=== PATIENT | male | born 1955 | race American Indian/Alaskan Native ===

== ENCOUNTER 2016-11-18 08:44 | Emergency (ER) | payer BC ==
[2016-11-18 09:43] VITALS: BP 142/89
[2016-11-18 10:15] LABS: Basophils % (Auto) 0.3 % (0.0-1.8); Eosinophils % (Auto) 0.6 % (0.0-4.3); Hematocrit 41.6 % (35.5-45.6); Hemoglobin 13.4 gm/dl (11.8-15.2); Mean Corpuscular HGB Conc 32 % (32-34); Mean Corpuscular Hemoglobin 32 pg (28-32); Mean Corpuscular Volume 97 fl (84-94); Platelet Count 199 K/mm3 (140-440); Red Blood Count 4.27 M/mm3 (3.65-5.03); Red Cell Distribution Width 15.1 % (13.2-15.2); White Blood Count 5.7 K/mm3 (4.5-11.0)
[2016-11-18 10:35] LABS: Anion Gap 15 mmol/L; BUN/Creatinine Ratio 11.42; Blood Urea Nitrogen 8 mg/dL (9-20); Calcium 9.6 mg/dL (8.4-10.2); Carbon Dioxide 24 mmol/L (22-30); Chloride 103.9 mmol/L (98-107); Glucose 95 mg/dL (75-100); Potassium 3.7 mmol/L (3.6-5.0); Sodium 139 mmol/L (137-145)
--- NOTE | 2016-11-18 14:05 | Emergency Department Report ---
HPI - General Chief Complaint: Dizziness Time Seen by Provider: 11/18/16 12:19 - HPI HPI: Chief complaint: Dizziness HPI: Patient is 59-year-old male with a history of previous sinus surgery and chronic sinusitis who presents with several days of dizziness. Patient denies vertigo, fever, nausea, vomiting or diarrhea. Patient does state he has some yellow sinus drainage and a slight headache that is worse when he bends over. Patient states his dizziness is worse when he bends over as well. Patient states he had a mass in his sinuses 2 years ago and had to have surgery at [facility]. Mode of arrival: [private car] Source: [Patient] [old chart] Began: Dizziness began Friday and waxes and wanes Duration: See above Context: See above Quality: Nagging for head pain Severity: 1 out of 10 Improved with: Nothing Worsened with: Nothing over Associated signs and symptoms: See above ED Past Medical Hx - Past Medical History Hx Hypertension: Yes Hx Arthritis: Yes - Surgical History Past Surgical History?: No - Social History Smoking Status: Never Smoker Substance Use Type: None - Medications Home Medications: Home Medications Medication Instructions Recorded Confirmed Last Taken Type Azithromycin [Zithromax TAB] 500 mg PO QDAY #3 tablet 11/18/16 Unknown Rx ED Review of Systems ROS: Stated complaint: DIZZY/HEADACHE Other details as noted in HPI ROS Constitutional: No fever ENT: No uri symptoms Cardiovascular: No chest pain Respiratory: No sob or cough GI: No nausea vomiting or diarrhea : No dysuria frequency or urgency, Skin: No rash Neuro: No focal weakness or numbness Psych: No depression Hamilton/lymph: No edema Physical Exam - Physical Exam Vital Signs: Vital Signs 11/18/16 09:35 Temperature 97.8 F Pulse Rate 95 H Respiratory 18 Rate Blood Pressure 142/89 O2 Sat by Pulse 98 Oximetry Physical Exam: GENERAL: The patient is well-developed well-nourished . HEENT: Normocephalic. Atraumatic. Extraocular motions are intact. Patient has moist mucous membranes. Lateral turbinate swelling. Slight amount of purulent drainage. No sinus tenderness on palpation. NECK: Supple. No meningitic signs are noted. There is no adenopathy noted. CHEST/LUNGS: Clear to auscultation. There is no respiratory distress noted. HEART/CARDIOVASCULAR: Regular. There is no tachycardia. There is no gallop rub or murmur. ABDOMEN: Abdomen is soft, nontender. Patient has normal bowel sounds. There is no abdominal distention. SKIN: There is no rash. There is no edema. There is no diaphoresis. NEURO: The patient is awake, alert, and oriented. The patient is cooperative. The patient has no focal neurologic deficits. The patient has normal speech. MUSCULOSKELETAL: There is no tenderness or deformity. There is no limitation range of motion. There is no evidence of acute injury. ED Course Vital Signs 11/18/16 09:35 Temperature 97.8 F Pulse Rate 95 H Respiratory 18 Rate Blood Pressure 142/89 O2 Sat by Pulse 98 Oximetry ED Medical Decision Making - Lab Data Result diagrams: 11/18/16 10:01 11/18/16 10:01 - Radiology Data Radiology results: report reviewed (CT brain is negative. Patient has opacification of his left maxillary sinus) Critical care attestation.: If time is entered above; I have spent that time in minutes in the direct care of this critically ill patient, excluding procedure time. ED Disposition Clinical Impression: Sinus infection Qualifiers: Sinusitis location: maxillary Chronicity: unspecified Qualified Code(s): J32.0 - Chronic maxillary sinusitis Disposition: DISCHARGED TO HOME OR SELFCARE Is pt being admited?: No Does the pt Need Aspirin: No Condition: Stable Instructions: Sinusitis (ED) Prescriptions: Azithromycin [Zithromax TAB] 500 mg PO QDAY #3 tablet Referrals: STEFANY MARTIN MD [Staff Physician] - 3-5 Days PRIMARY CARE, [Primary Care Provider] - 2-3 Days Time of Disposition: 14:07
--- NOTE | 2016-11-18 14:06 | Cat Scan Report ---
CT HEAD WITHOUT CONTRAST: HISTORY: Headache. Serial contiguous axial images were obtained through the cranium. Intravenous contrast material was not administered. The ventricles are normal in size and appearance. There is no mass effect or midline shift. No areas of abnormally increased or decreased attenuation are seen. No mass lesion is seen. There is opacification of the left maxillary sinus which is unchanged since 11/30/14. The remaining paranasal sinuses and mastoid air cells are clear. IMPRESSION: No acute intracranial process. Chronic opacification of the left maxillary sinus. No significant change since 11/30/14.
== END 2016-11-18 14:45 | disposition home or self-care (01) ==
LOC: ED 08:44
DX: J32.0 Chronic maxillary sinusitis (principal); I10 Essential (primary) hypertension; M19.90 Unspecified osteoarthritis, unspecified site
CPT/HCPCS: 36415; 70450; 80048; 85025; 93005; 93010

== ENCOUNTER 2017-05-02 05:52 | Day surgery (SDC) | payer BC ==
[2017-05-02] MEDS ORDERED: VERSED IV NR (06:00)
[2017-05-02] MEDS ORDERED: PEPCID PO NR (06:00)
[2017-05-02] MEDS ORDERED: NACL 0.9% 1000 ML 1,000 ML IV SCH (06:00)
[2017-05-02] MEDS ORDERED: NACL BACTERIOSTATIC INFILTRATI ONE (06:32)
[2017-05-02] MEDS ORDERED: DILAUDID IV PRN (07:06)
[2017-05-02] MEDS ORDERED: PERCOCET 5/325 PO PRN (07:06)
--- NOTE | 2017-05-02 07:06 | Anesthesia Day of Surgery ---
Anesthesia Day of Surgery - Day of Surgery Patient Examined: Yes Patient H&P Reviewed: Yes Patient is NPO: Yes
--- NOTE | 2017-05-02 07:06 | Anesthesia Consultation ---
Anesthesia Consult and Med Hx Date of service: 05/02/17 - Airway Anesthetic Teeth Evaluation: Good ROM Head & Neck: Adequate Mental/Hyoid Distance: Adequate Mallampati Class: Class II Intubation Access Assessment: Probably Good - Pulmonary Exam CTA: Yes - Cardiac Exam Cardiac Exam: RRR - Pre-Operative Health Status ASA Pre-Surgery Classification: ASA2 Proposed Anesthetic Plan: General - Pulmonary Hx Sleep Apnea: Yes (CPAP) - Cardiovascular System Hx Hypertension: Yes - Gastrointestinal Hx Gastroesophageal Reflux Disease: No - Other Systems Hx Cancer: No
[2017-05-02] MEDS ORDERED: MARCAINE 0.25% INFILTRATI ONE ×2 (07:18→07:30)
[2017-05-02] MEDS ORDERED: ANTIBIOTIC OINT TP ONE ×2 (07:18→07:43)
[2017-05-02] MEDS ORDERED: NACL 0.9% 500 ML 500 ML ONE (07:19)
[2017-05-02] MEDS ORDERED: XYLOCAINE 1%/ EPI 1:100,000 INFILTRATI ONE ×2 (07:19→07:30)
[2017-05-02] MEDS ORDERED: AFRIN ONE (07:19)
[2017-05-02] MEDS ORDERED: GELFOAM TP ONE ×2 (07:19→07:23)
[2017-05-02] MEDS ORDERED: DIPRIVAN 10 MG/ML IV ONE (07:21)
[2017-05-02] MEDS ORDERED: SUBLIMAZE ONE (07:21)
[2017-05-02] MEDS ORDERED: DECADRON ONE (07:22)
[2017-05-02] MEDS ORDERED: ROBINUL ONE ×2 (07:22)
[2017-05-02] MEDS ORDERED: ZEMURON IV ONE (07:22)
[2017-05-02] MEDS ORDERED: XYLOCAINE MPF 2% ONE (07:23)
[2017-05-02] MEDS ORDERED: NACL 0.9% 500 ML IRRIGATION ONE (07:30)
[2017-05-02] MEDS ORDERED: NACL 0.9% IR ONE (07:30)
[2017-05-02] MEDS ORDERED: AFRIN NS ONE (07:30)
[2017-05-02] MEDS ORDERED: ePHEDrine SULFATE ONE (07:44)
[2017-05-02] MEDS ORDERED: NEO SYNEPHRINE/NS Syringe(OR USE) IV ONE (08:00)
[2017-05-02] MEDS ORDERED: ZOFRAN IV PRN ×2 (08:00→10:00)
--- NOTE | 2017-05-02 09:22 | Post Anesthesia Evaluation ---
- Post Anesthesia Evaluation Patient Participated: Yes Airway Patent: Yes Stable Respiratory Function: Yes Temp > 96.8F: Yes Pain Manageable: Yes Adequeate Hydration: Yes Anesthesia Complications: No
[2017-05-02] MEDS ORDERED: TYLENOL #3 PO PRN (10:00)
--- NOTE | 2017-05-02 10:37 | Operative Report ---
PREOPERATIVE DIAGNOSES: 1. Inferior turbinate hypertrophy. 2. Chronic maxillary sinusitis. POSTOPERATIVE DIAGNOSES: 1.Inferior turbinate hypertrophy. 2.Chronic maxillary sinusitis. PROCEDURES: 1. Inferior turbinate reduction. 2. Bilateral functional endoscopic sinus surgery with maxillary antrostomy and removal of tissue. ANESTHESIA: General. ASSISTANTS: None. IMPLANTS: None. ESTIMATED BLOOD LOSS: 10 mL. COMPLICATIONS: None. SPECIMENS: None. INDICATIONS: This is a 61-year-old male with a history of previous endoscopic sinus surgery two years ago. The patient had a recent CT scan, which showed complete opacification of the left maxillary sinus with chronic sinus disease involving both maxillary sinuses as well as clinical evidence of inferior turbinate hypertrophy, bilateral. The patient was therefore indicated for the above procedure. DESCRIPTION OF PROCEDURE: The patient was identified in the preoperative area, the patient's history and physical was updated. Informed consent was obtained and the patient was brought back to operating room #4 and positioned supine on the OR table. The patient underwent a induction by anesthesia followed by placement of LMA. After the patient was drifted asleep, the patient was prepped and draped in the usual fashion for nasal and sinus surgery. Multidisciplinary timeout was then performed. We began the procedure by packing both nostrils with Afrin-soaked pledgets. These were left in place for approximately 10 minutes and allowed to take effect. We also infiltrated both inferior turbinates with a mixture of 0.25% Marcaine plain and 1% lidocaine with 1:100,000 epinephrine. After this was allowed to take effect, the pledgets were removed and the procedure was begun. The 0 degree endoscope was inserted into the right nostril first and this would be used throughout the case unless otherwise specified. Examination of the nasal cavity revealed a subtotal perforation of the nasal septum as well as marked and bilateral inferior turbinate hypertrophy. There was evidence of prior sinus surgery and ethmoidectomy. Examination of the right nasal cavity revealed a patent right maxillary antrostomy. The microdebrider was then inserted into the right nostril and this was used to surgically enlarge the existing maxillary antrostomy. A 30-degree endoscope was then assembled and used to examine the right nasal cavity. Examination within the maxillary antrostomy did reveal some thickened mucosa and tissue. This was removed using a curved olive-tipped suction from the maxillary sinus. Following this, Afrin pledgets were replaced and we began the inferior turbinate reduction portion of the procedure on the right side. Using an inferior turbinate blade 2.9 mm size, this was used to puncture into the head of the right inferior turbinate and the submucous resection of the anterior inferior turbinate bone was performed followed by outfracture of the inferior turbinate using a Boies elevator. Following this, attention was then turned to the left side. A surgical endoscopy revealed a scarred closure of the left maxillary sinus antrum. A curved olive-tipped sinus seeker was used to puncture into the site, the anatomic site of the maxillary sinus and enlarged the ostium gently. Following this maneuver, we did encounter purulent secretions emanating from the left maxillary sinus. These were suctioned out using a curved suction. We then used the curved microdebrider blade and the 0 degree endoscope to perform a left maxillary antrostomy and gently widened the existing antrostomy. Following this, suction and a Back Biter was used to enlarge the maxillary antrum anteriorly and a small amount of tissue and thickened mucosa was removed from the left maxillary sinus. Following this, the maxillary sinus antrum was found to be widely patent. We then performed the inferior turbinate reduction on the left in the same fashion to the right using a 2.9 microdebrider blade. This was inserted into the head of the inferior turbinate and used to perform a submucous resection of the left inferior turbinate. Following this, a Boies elevator was used to perform outfracture of the inferior turbinate and the Afrin pledgets were placed in both sides for hemostasis. The nose was then copiously irrigated with normal saline solution. The curved tip suction was then placed on 20 mL syringe and we then did irrigate the left maxillary sinus, until all of the purulent secretions were removed. The nose was then once again suctioned and all pledgets were removed. A curved flexible suction was then used to suction out the oropharynx and the patient was turned back to anesthesia for emergence. The case was then complete. All surgical counts were correct at the conclusion of the case. Hemostasis was confirmed using the 0-degree endoscope and the patient was turned back to anesthesia. He would later be uneventfully extubated and transferred to PACU in stable condition. There were no complications. Dr. Dodge was present for and participated in the entire case. JOB# [id number] JOSE LUIS/EM
[2017-05-02 10:50] VITALS: BP 140/78
== END 2017-05-02 10:35 | disposition home or self-care (01) ==
LOC: OR 05:52
PROVIDERS: ATTEND Otolaryngology
DX: J34.3 Hypertrophy of nasal turbinates (principal); J32.0 Chronic maxillary sinusitis; G47.30 Sleep apnea, unspecified; I10 Essential (primary) hypertension
CPT/HCPCS: 30801; 31267; A4649; J1100; J1170; J2250; J2370; J2405; J2704; J3010; J7030; J7040

== ENCOUNTER 2017-05-30 11:00 | Outpatient (CLI) | payer BC | END 2017-05-30 11:01 | disposition home or self-care (01) | LOC: SLR 11:00 | PROVIDERS: ATTEND Otolaryngology | DX: G47.30 Sleep apnea, unspecified (principal); E66.9 Obesity, unspecified; R40.0 Somnolence | CPT/HCPCS: 95810 ==

== ENCOUNTER 2018-02-21 10:35 | Emergency (ER) | payer BC ==
[2018-02-21 10:40] VITALS: BP 168/98
--- NOTE | 2018-02-21 10:52 | Emergency Department Report ---
ED Recheck HPI - General Chief Complaint: Medical Clearance Stated Complaint: MED REFILL Time Seen by Provider: 02/21/18 10:44 Source: patient Mode of arrival: Ambulatory Limitations: No Limitations - History of Present Illness Initial Comments: 62-year-old male past medical history hypertension and hyperlipidemia, ulcerative colitis presents requesting for refill on his nifedipine prescription. Patient denies any chest pain palpitations shortness of breath nausea vomiting or headache. Denies any blurry vision. Ran out 2 days ago. States he has prescriptions for all his other regular medicines. Patient denies any other complaints whatsoever. Awake alert and oriented 3 not in acute distress. MD Complaint: medication refill request Onset/Timin -: days(s) - Related Data Home Medications Medication Instructions Recorded Confirmed Last Taken Aspirin [Adult Low Dose Aspirin EC] 81 mg PO DAILY 04/25/17 05/02/17 05/01/17 Diclofenac EC [Voltaren] 50 mg PO BID 04/25/17 05/02/17 05/01/17 Dorzolamide/Timolol(Nf) 2-0.5% 1 drops OU BID 04/25/17 05/02/17 05/02/17 03:15 [Cosopt (Nf)] Doxazosin Mesylate 8 mg PO BID 04/25/17 05/02/17 05/02/17 03:15 HYDROcodone/ACETAMINOPHEN 1 tab PO BID 04/25/17 05/02/17 05/01/17 [HYDROcodone-Acetaminophn 10-325] Metoprolol [Lopressor TAB] 50 mg PO DAILY 04/25/17 05/02/17 05/02/17 03:15 NIFEdipine [Nifedipine ER] 90 mg PO DAILY 04/25/17 05/02/17 05/02/17 03:15 Pravastatin Sodium 80 mg PO DAILY 04/25/17 05/02/17 05/01/17 Tizanidine HCl [Zanaflex] 4 mg PO TID PRN 04/25/17 05/02/17 05/01/17 Travoprost (Benzalkonium) 1 drop OU DAILY 04/25/17 05/02/17 05/02/17 03:15 [Travoprost 0.004% Eye Drop] sulfaSALAzine [Sulfasalazine] 2 tab PO BID 05/02/17 05/02/17 05/01/17 Previous Rx's Medication Instructions Recorded Last Taken Type NIFEdipine [] 90 mg PO DAILY #30 tablet 02/21/18 Unknown Rx Allergies Allergy/AdvReac Type Severity Reaction Status Date / Time No Known Allergies Allergy Verified 04/25/17 13:00 ED Review of Systems ROS: Stated complaint: MED REFILL Other details as noted in HPI Constitutional: denies: chills, fever Eyes: denies: eye pain, eye discharge, vision change ENT: denies: ear pain, throat pain Respiratory: denies: cough, shortness of breath, wheezing Cardiovascular: denies: chest pain, palpitations Endocrine: no symptoms reported Gastrointestinal: denies: abdominal pain, nausea, diarrhea Genitourinary: denies: urgency, dysuria Musculoskeletal: denies: back pain, joint swelling, arthralgia Skin: denies: rash, lesions Neurological: denies: headache, weakness, paresthesias Psychiatric: denies: anxiety, depression Hematological/Lymphatic: denies: easy bleeding, easy bruising ED Past Medical Hx - Past Medical History Hx Hypertension: Yes Hx Arthritis: Yes - Social History Smoking Status: Never Smoker - Medications Home Medications: Home Medications Medication Instructions Recorded Confirmed Last Taken Type Aspirin [Adult Low Dose Aspirin EC] 81 mg PO DAILY 04/25/17 05/02/17 05/01/17 History Diclofenac EC [Voltaren] 50 mg PO BID 04/25/17 05/02/17 05/01/17 History Dorzolamide/Timolol(Nf) 2-0.5% 1 drops OU BID 04/25/17 05/02/17 05/02/17 03:15 History [Cosopt (Nf)] Doxazosin Mesylate 8 mg PO BID 04/25/17 05/02/17 05/02/17 03:15 History HYDROcodone/ACETAMINOPHEN 1 tab PO BID 04/25/17 05/02/17 05/01/17 History [HYDROcodone-Acetaminophn 10-325] Metoprolol [Lopressor TAB] 50 mg PO DAILY 04/25/17 05/02/17 05/02/17 03:15 History NIFEdipine [Nifedipine ER] 90 mg PO DAILY 04/25/17 05/02/17 05/02/17 03:15 History Pravastatin Sodium 80 mg PO DAILY 04/25/17 05/02/17 05/01/17 History Tizanidine HCl [Zanaflex] 4 mg PO TID PRN 04/25/17 05/02/17 05/01/17 History Travoprost (Benzalkonium) 1 drop OU DAILY 04/25/17 05/02/17 05/02/17 03:15 History [Travoprost 0.004% Eye Drop] sulfaSALAzine [Sulfasalazine] 2 tab PO BID 05/02/17 05/02/17 05/01/17 History NIFEdipine [] 90 mg PO DAILY #30 tablet 02/21/18 Unknown Rx ED Physical Exam - General Limitations: No Limitations General appearance: alert, in no apparent distress - Head Head exam: Present: atraumatic, normocephalic - Eye Eye exam: Present: normal appearance - ENT ENT exam: Present: mucous membranes moist - Neck Neck exam: Present: normal inspection - Respiratory Respiratory exam: Present: normal lung sounds bilaterally. Absent: respiratory distress - Cardiovascular Cardiovascular Exam: Present: regular rate, normal rhythm. Absent: systolic murmur, diastolic murmur, rubs, gallop - GI/Abdominal GI/Abdominal exam: Present: soft, normal bowel sounds - Rectal Rectal exam: Present: deferred - Extremities Exam Extremities exam: Present: normal inspection - Back Exam Back exam: Present: normal inspection - Neurological Exam Neurological exam: Present: alert, oriented X3 - Psychiatric Psychiatric exam: Present: normal affect, normal mood - Skin Skin exam: Present: warm, dry, intact, normal color. Absent: rash ED Course Vital Signs 02/21/18 10:36 Temperature 98.2 F Pulse Rate 61 Respiratory 18 Rate Blood Pressure 168/98 O2 Sat by Pulse 99 Oximetry ED Recheck MDM - Differential Diagnosis Prescription Refill(s) - Medical Decision Making A/P: Medication refill 1-patient is asymptomatic at this time 2-blood pressure is not severely elevated 3-patient to follow up with his primary care doctor, I refilled his nifedipine Critical care attestation.: If time is entered above; I have spent that time in minutes in the direct care of this critically ill patient, excluding procedure time. ED Disposition Clinical Impression: Medication refill Disposition: DC-01 TO HOME OR SELFCARE Is pt being admited?: No Does the pt Need Aspirin: No Condition: Stable Instructions: Hypertension (ED) Prescriptions: NIFEdipine [] 90 mg PO DAILY #30 tablet Referrals: KOKO AGUSTIN MD [Staff Physician] - 3-5 Days Time of Disposition: 10:46
== END 2018-02-21 12:09 | disposition home or self-care (01) ==
LOC: ED 10:35
DX: Z76.0 Encounter for issue of repeat prescription (principal); I10 Essential (primary) hypertension; M19.90 Unspecified osteoarthritis, unspecified site; Z79.82 Long term (current) use of aspirin
CPT/HCPCS: 99282

== ENCOUNTER 2018-05-18 08:01 | Outpatient (CLI) | payer BC ==
--- NOTE | 2018-05-19 21:48 | Treadmill Report ---
THALLIUM STRESS TEST LEFT VENTRICLE: Left ventricular chamber size is within normal spread. Perfusion study demonstrates fairly homogeneous uptake of the tracer in all segments, no significant perfusion defects identified. A small fixed basal inferior defect is consistent with diaphragmatic attenuation artifact. There is no reversible ischemia. Gated analysis demonstrates normal left ventricular systolic function, ejection fraction 64%. CONCLUSION: No demonstrable ischemia on thallium perfusion study, negative study. Clinical correlation is recommended. JOB# [id number] CA/NTS
== END 2018-05-18 08:02 | disposition home or self-care (01) ==
LOC: ECHO 08:01
PROVIDERS: ATTEND Internal Medicine
DX: I34.0 Nonrheumatic mitral (valve) insufficiency (principal); I10 Essential (primary) hypertension; E78.00 Pure hypercholesterolemia, unspecified; M19.90 Unspecified osteoarthritis, unspecified site
CPT/HCPCS: 78452; 93017; 93306; A9502

== ENCOUNTER 2019-02-15 11:05 | Emergency (ER) | payer BC ==
[2019-02-15 11:11] VITALS: BP 167/95
[2019-02-15] MEDS ORDERED: TORADOL IM ONE (11:36)
[2019-02-15] MEDS ORDERED: DECADRON IM ONE (11:36)
--- NOTE | 2019-02-15 12:00 | Emergency Department Report ---
ED Back Pain/Injury HPI - General Chief Complaint: Extremity Injury, Lower Stated Complaint: LT HIP PAIN Time Seen by Provider: 02/15/19 11:36 Source: patient Limitations: No Limitations - History of Present Illness Initial Comments: Patient is a 63-year-old male who is presenting with left lower back pain for the past 2-3 days. Patient was recently on vacation and lives with his grandchild causing increased pain. Patient states pain is worse with standing and go from a lying to sitting position. He's states he has radiation down to the leg on the left. It is a shooting pain that is intermittent. Patient denies any bowel or bladder dysfunction fevers or chills or direct trauma. - Related Data Home Medications Medication Instructions Recorded Confirmed Last Taken Aspirin [Adult Low Dose Aspirin EC] 81 mg PO DAILY 04/25/17 07/27/18 07/27/18 Diclofenac EC [Voltaren] 50 mg PO BID 04/25/17 07/27/18 07/27/18 Doxazosin Mesylate 8 mg PO BID 04/25/17 07/27/18 07/27/18 HYDROcodone/ACETAMINOPHEN 1 tab PO BID 04/25/17 07/27/18 07/27/18 [HYDROcodone-Acetaminophn 10-325] Metoprolol [Lopressor TAB] 50 mg PO DAILY 04/25/17 07/27/18 07/27/18 Pravastatin Sodium 80 mg PO QHS 04/25/17 07/27/18 07/26/18 sulfaSALAzine [Sulfasalazine] 2 tab PO BID 05/02/17 07/27/18 07/27/18 tiZANidine [Zanaflex 4mg TAB] 1 tab PO TID 07/27/18 07/27/18 07/27/18 Previous Rx's Medication Instructions Recorded Last Taken Type NIFEdipine [] 90 mg PO DAILY #30 tablet 02/21/18 07/27/18 Rx Ketorolac [Toradol] 10 mg PO Q6H PRN #12 tablet 02/15/19 Unknown Rx Allergies Allergy/AdvReac Type Severity Reaction Status Date / Time No Known Allergies Allergy Verified 02/15/19 11:06 ED Review of Systems ROS: Stated complaint: LT HIP PAIN Other details as noted in HPI Comment: All other systems reviewed and negative ED Back Pain Physical Exam - Exam General: Vital signs noted. No distress. Alert and acting appropriately. Back/Abdomen: Yes Perilumbar Tenderness, No Abdominal Tenderness, No Perithoracic Tenderness, No Sacroiliac Tenderness, No Flank Tenderness, No Straight Leg Raise Pain Neuro: Yes Normal Sensation, Yes Normal DTR's, Yes Normal Gait, No Motor Weakness ED Course Vital Signs 02/15/19 11:08 Temperature 98.7 F Pulse Rate 91 H Respiratory 18 Rate Blood Pressure 167/95 O2 Sat by Pulse 100 Oximetry ED Medical Decision Making - Medical Decision Making Patient is in pain management therefore no narcotics will be given. Patient given Toradol and a Decadron shot and he'll be discharged home. Patient given instructions ice therapy. Critical care attestation.: If time is entered above; I have spent that time in minutes in the direct care of this critically ill patient, excluding procedure time. ED Disposition Clinical Impression: Acute left lumbar radiculopathy Disposition: - TO HOME OR SELFCARE Is pt being admited?: No Does the pt Need Aspirin: No Condition: Stable Instructions: Lumbar Radiculopathy (ED) Referrals: ARNOL WILKINSON MD [Staff Physician] - 3-5 Days Time of Disposition: 12:00
== END 2019-02-15 12:07 | disposition home or self-care (01) ==
LOC: ED 11:05
DX: M54.16 Radiculopathy, lumbar region (principal); Z79.899 Other long term (current) drug therapy; Z79.82 Long term (current) use of aspirin
CPT/HCPCS: 96372; 99282; J1100; J1885

== ENCOUNTER 2019-03-03 13:35 | Outpatient (CLI) | payer BC ==
--- NOTE | 2019-03-03 14:25 | XRay Report ---
SACROILIAC JOINTS, 3 VIEWS INDICATION: pain in left hip. COMPARISON: None. IMPRESSION: No acute osseous or soft tissue abnormality. No significant degenerative changes or f usion at the SI joints. Moderate osteoarthritic changes are noted at both hip joints. Lower lumbar fu keeley is partially imaged. Signer Name: Scott Sutherland Jr, MD Signed: 03/03/2019 2:21 PM Workstation Name: [id number]
== END 2019-03-03 13:36 | disposition home or self-care (01) ==
LOC: XRAY 13:35
PROVIDERS: ATTEND Orthopaedic Surgery
DX: M16.0 Bilateral primary osteoarthritis of hip (principal); I10 Essential (primary) hypertension; E78.00 Pure hypercholesterolemia, unspecified
CPT/HCPCS: 72202

== ENCOUNTER 2019-10-22 07:54 | Emergency (ER) | payer SELFPAY ==
[2019-10-22 07:58] VITALS: BP 141/77
[2019-10-22] MEDS ORDERED: predniSONE 50 MG TAB PO ONE (08:24)
[2019-10-22] MEDS ORDERED: predniSONE 50 MG TAB ONE (08:25)
--- NOTE | 2019-10-22 08:41 | Emergency Department Report ---
- General Chief Complaint: Upper Respiratory Infection Stated Complaint: SORE THROAT/CONGESTION Time Seen by Provider: 10/22/19 08:22 Source: patient Mode of arrival: Ambulatory Limitations: No Limitations - History of Present Illness MD Complaint: cough, rhinorrhea, nasal congestion, sinus pain -: week(s) Quality: dull Consistency: constant Improves With: nothing Worsens With: nothing Associated Symptoms: rhinorrhea, nasal congestion. denies: chills, myalgias, cough, chest pain, shortness of breath, vomiting, dysuria, confusion, right sweats, epistaxis Treatments Prior to Arrival: none - Related Data Home Medications Medication Instructions Recorded Confirmed Last Taken Aspirin [Adult Low Dose Aspirin EC] 81 mg PO DAILY 04/25/17 07/27/18 07/27/18 Diclofenac EC [Voltaren] 50 mg PO BID 04/25/17 07/27/18 07/27/18 Doxazosin Mesylate 8 mg PO BID 04/25/17 07/27/18 07/27/18 HYDROcodone/ACETAMINOPHEN 1 tab PO BID 04/25/17 07/27/18 07/27/18 [HYDROcodone-Acetaminophn 10-325] Metoprolol [Lopressor TAB] 50 mg PO DAILY 04/25/17 07/27/18 07/27/18 Pravastatin Sodium 80 mg PO QHS 04/25/17 07/27/18 07/26/18 sulfaSALAzine [Sulfasalazine] 2 tab PO BID 05/02/17 07/27/18 07/27/18 tiZANidine [Zanaflex 4mg TAB] 1 tab PO TID 07/27/18 07/27/18 07/27/18 Previous Rx's Medication Instructions Recorded Last Taken Type NIFEdipine [] 90 mg PO DAILY #30 tablet 02/21/18 07/27/18 Rx Ketorolac [Toradol] 10 mg PO Q6H PRN #12 tablet 02/15/19 Unknown Rx Amoxicillin/Potassium Clav 1 each PO BID #20 tablet 10/22/19 Unknown Rx [Augmentin 875-125 Tablet] Mometasone Furoate [Nasonex] 17 gm NS BID #1 spray.pump 10/22/19 Unknown Rx predniSONE [Deltasone] 50 mg PO QDAY #5 tab 10/22/19 Unknown Rx Allergies Allergy/AdvReac Type Severity Reaction Status Date / Time No Known Allergies Allergy Verified 10/22/19 07:54 ED Review of Systems ROS: Stated complaint: SORE THROAT/CONGESTION Other details as noted in HPI Comment: All other systems reviewed and negative ED Past Medical Hx - Past Medical History Hx Hypertension: Yes Hx Arthritis: Yes Additional medical history: chronic back pain - Surgical History Additional Surgical History: Ortho surgery - Social History Smoking Status: Never Smoker Substance Use Type: None - Medications Home Medications: Home Medications Medication Instructions Recorded Confirmed Last Taken Type Aspirin [Adult Low Dose Aspirin EC] 81 mg PO DAILY 04/25/17 07/27/18 07/27/18 History Diclofenac EC [Voltaren] 50 mg PO BID 04/25/17 07/27/18 07/27/18 History Doxazosin Mesylate 8 mg PO BID 04/25/17 07/27/18 07/27/18 History HYDROcodone/ACETAMINOPHEN 1 tab PO BID 04/25/17 07/27/18 07/27/18 History [HYDROcodone-Acetaminophn 10-325] Metoprolol [Lopressor TAB] 50 mg PO DAILY 04/25/17 07/27/18 07/27/18 History Pravastatin Sodium 80 mg PO QHS 04/25/17 07/27/18 07/26/18 History sulfaSALAzine [Sulfasalazine] 2 tab PO BID 05/02/17 07/27/18 07/27/18 History NIFEdipine [] 90 mg PO DAILY #30 tablet 02/21/18 07/27/18 07/27/18 Rx tiZANidine [Zanaflex 4mg TAB] 1 tab PO TID 07/27/18 07/27/18 07/27/18 History Ketorolac [Toradol] 10 mg PO Q6H PRN #12 tablet 02/15/19 Unknown Rx Amoxicillin/Potassium Clav 1 each PO BID #20 tablet 10/22/19 Unknown Rx [Augmentin 875-125 Tablet] Mometasone Furoate [Nasonex] 17 gm NS BID #1 spray.pump 10/22/19 Unknown Rx predniSONE [Deltasone] 50 mg PO QDAY #5 tab 10/22/19 Unknown Rx ED Physical Exam - General Limitations: No Limitations General appearance: alert, in no apparent distress - Head Head exam: Present: atraumatic, normocephalic - Eye Eye exam: Present: normal appearance, PERRL, EOMI Pupils: Present: normal accommodation - ENT ENT exam: Present: normal exam, mucous membranes moist, other (Sinuses injected bilaterally swollen right is greater than the left. Some tenderness with with percussion to the maxillary region. Small effusion behind the right tympanic membrane. No lymphadenopathy noted.) - Neck Neck exam: Present: normal inspection - Respiratory Respiratory exam: Present: normal lung sounds bilaterally. Absent: respiratory distress, wheezes, rales, rhonchi, stridor, chest wall tenderness, accessory muscle use - Cardiovascular Cardiovascular Exam: Present: regular rate, normal rhythm. Absent: systolic murmur, diastolic murmur, rubs, gallop - GI/Abdominal GI/Abdominal exam: Present: soft, normal bowel sounds. Absent: tenderness, guarding, rebound - Rectal Rectal exam: Present: deferred - Extremities Exam Extremities exam: Present: normal inspection, normal capillary refill - Back Exam Back exam: Present: normal inspection. Absent: CVA tenderness (R), CVA tenderness (L) - Neurological Exam Neurological exam: Present: alert, oriented X3, CN II-XII intact - Psychiatric Psychiatric exam: Present: normal affect, normal mood. Absent: manic, homicidal ideation - Skin Skin exam: Present: warm, dry, intact, normal color. Absent: rash, diaphoretic, erythema, petechiae, pallor, abrasion ED Course Vital Signs 10/22/19 07:55 Temperature 98.1 F Pulse Rate 69 Respiratory 18 Rate Blood Pressure 141/77 O2 Sat by Pulse 99 Oximetry Critical care attestation.: If time is entered above; I have spent that time in minutes in the direct care of this critically ill patient, excluding procedure time. ED Disposition Clinical Impression: Sinusitis Disposition: DC-01 TO HOME OR SELFCARE Is pt being admited?: No Does the pt Need Aspirin: No Condition: Stable Instructions: Sinusitis (ED), Acute Bacterial Rhinosinusitis (ED) Prescriptions: Amoxicillin/Potassium Clav [Augmentin 875-125 Tablet] 1 each PO BID #20 tablet predniSONE [Deltasone] 50 mg PO QDAY #5 tab Mometasone Furoate [Nasonex] 17 gm NS BID #1 spray.pump Referrals: PRIMARY CARE, [Primary Care Provider] - 3-5 Days
== END 2019-10-22 08:57 | disposition home or self-care (01) ==
LOC: ED 07:54
DX: J32.9 Chronic sinusitis, unspecified (principal); I10 Essential (primary) hypertension; M19.90 Unspecified osteoarthritis, unspecified site; Z79.2 Long term (current) use of antibiotics; Z79.82 Long term (current) use of aspirin; Z79.899 Other long term (current) drug therapy
CPT/HCPCS: 99282; J7512

== ENCOUNTER 2019-10-27 10:37 | Outpatient (CLI) | payer BC ==
[2019-10-27 11:02] LABS: Hematocrit 41.6 % (35.5-45.6); Mean Corpuscular HGB Conc 34 % (32-34); Mean Corpuscular Volume 95 fl (84-94); Platelet Count 174 K/mm3 (140-440); Red Blood Count 4.38 M/mm3 (3.65-5.03); Red Cell Distribution Width 14.3 % (13.2-15.2)
[2019-10-27 11:28] LABS: Alanine Aminotransferase 48 units/L (7-56); Albumin 4.8 g/dL (3.9-5); BUN/Creatinine Ratio 14; Blood Urea Nitrogen 11 mg/dL (9-20); Calcium 9.7 mg/dL (8.4-10.2); Hemolysis Index 2
[2019-10-27 11:40] LABS: Erythrocyte Sedimentation Rate 4 mm/Hr (0-20)
== END 2019-10-27 10:38 | disposition home or self-care (01) ==
LOC: LAB 10:37
DX: K51.90 Ulcerative colitis, unspecified, without complications (principal); R14.0 Abdominal distension (gaseous); Z87.11 Personal history of peptic ulcer disease; K62.5 Hemorrhage of anus and rectum
CPT/HCPCS: 36415; 80053; 82747; 85027; 85652; 86140

== ENCOUNTER 2019-11-11 13:48 | Emergency (ER) | payer BC ==
[2019-11-11 14:31] LABS: Basophils % (Auto) 0.3 % (0.0-1.8); Eosinophils % (Auto) 0.3 % (0.0-4.3); Lymphocytes % (Auto) 34.6 % (13.4-35.0); Mean Corpuscular HGB Conc 33 % (32-34); Mean Corpuscular Volume 96 fl (84-94); Monocytes # (Auto) 0.6 K/mm3 (0.0-0.8); Monocytes % (Auto) 9.8 % (0.0-7.3); Platelet Count 197 K/mm3 (140-440); Red Blood Count 4.17 M/mm3 (3.65-5.03); Red Cell Distribution Width 14.4 % (13.2-15.2)
[2019-11-11 14:40] LABS: INR 1.13 (0.87-1.13)
[2019-11-11 14:41] LABS: Partial Thromboplastin Time 25.8 Sec. (24.2-36.6)
--- NOTE | 2019-11-11 14:41 | XRay Report ---
CHEST 2 VIEWS INDICATION / CLINICAL INFORMATION: Chest pain. COMPARISON: 07/27/2018. FINDINGS: SUPPORT DEVICES: None. HEART / MEDIASTINUM: No significant abnormality. LUNGS / PLEURA: No significant pulmonary or pleural abnormality. No pneumothorax. ADDITIONAL FINDINGS: No significant additional findings. IMPRESSION: 1. No acute findings. Signer Name: Bryan Barnhart MD Signed: 11/11/2019 2:37 PM Workstation Name: [id number]
[2019-11-11 14:46] LABS: Alanine Aminotransferase 23 units/L (7-56); Albumin 4.6 g/dL (3.9-5); BUN/Creatinine Ratio 14; Blood Urea Nitrogen 11 mg/dL (9-20); Calcium 9.5 mg/dL (8.4-10.2); Hemolysis Index 3
[2019-11-11] MEDS ORDERED: IPRATROPIUM/ALBUTEROL SULFATE 3 ML AMPUL.NEB IH ONE (14:58)
--- NOTE | 2019-11-11 16:00 | Emergency Department Report ---
ED Shortness of Breath HPI - General Chief Complaint: Chest Pain Stated Complaint: SOB Time Seen by Provider: 11/11/19 14:01 Source: patient Mode of arrival: Ambulatory Limitations: No Limitations - History of Present Illness Initial Comments: This is a 64-year-old male nontoxic, well nourished in appearance, no acute signs of distress presents to the ED with c/o of intermittent shortness of breath x1 month. Patient denies any chest pain. Patient denies any other complaints. Patient denies any cough or URI symptoms. Patient denies any upper respiratory symptoms. Patient denies any chest pain, hemoptysis, fever, chills, nausea, vomiting, headache, stiff neck, numbness, tingling, abdominal pain. Patient denies any recent travels or long car rides. Patient denies any recent surgeries or any sick contacts. Patient denies any drug allergies. MD Complaint: shortness of breath -: month(s) (1) Pain Scale: 0 Consistency: intermittent Improves With: nothing Worsens With: nothing Associated Symptoms: denies other symptoms Treatments Prior to Arrival: none - Related Data Home Medications Medication Instructions Recorded Confirmed Last Taken Aspirin [Adult Low Dose Aspirin EC] 81 mg PO DAILY 04/25/17 07/27/18 07/27/18 Diclofenac EC [Voltaren] 50 mg PO BID 04/25/17 07/27/18 07/27/18 Doxazosin Mesylate 8 mg PO BID 04/25/17 07/27/18 07/27/18 HYDROcodone/ACETAMINOPHEN 1 tab PO BID 04/25/17 07/27/18 07/27/18 [HYDROcodone-Acetaminophn 10-325] Metoprolol [Lopressor TAB] 50 mg PO DAILY 04/25/17 07/27/18 07/27/18 Pravastatin Sodium 80 mg PO QHS 04/25/17 07/27/18 07/26/18 sulfaSALAzine [Sulfasalazine] 2 tab PO BID 05/02/17 07/27/18 07/27/18 tiZANidine [Zanaflex 4mg TAB] 1 tab PO TID 07/27/18 07/27/18 07/27/18 Previous Rx's Medication Instructions Recorded Last Taken Type NIFEdipine [] 90 mg PO DAILY #30 tablet 02/21/18 07/27/18 Rx Ketorolac [Toradol] 10 mg PO Q6H PRN #12 tablet 02/15/19 Unknown Rx Amoxicillin/Potassium Clav 1 each PO BID #20 tablet 10/22/19 Unknown Rx [Augmentin 875-125 Tablet] Mometasone Furoate [Nasonex] 17 gm NS BID #1 spray.pump 10/22/19 Unknown Rx predniSONE [Deltasone] 50 mg PO QDAY #5 tab 10/22/19 Unknown Rx Albuterol INH(or & Nicu Only) 2 puff IH QID PRN #8.5 gram 11/11/19 Unknown Rx [ProAir HFA Inhaler] Prednisone [predniSONE 10 mg 10 mg PO .TAPER #1 tab.ds.pk 11/11/19 Unknown Rx (6-Day Pack, 21 Tabs)] Allergies Allergy/AdvReac Type Severity Reaction Status Date / Time No Known Allergies Allergy Verified 10/22/19 07:54 ED Review of Systems ROS: Stated complaint: SOB Other details as noted in HPI Constitutional: denies: chills, fever Eyes: denies: eye pain, eye discharge, vision change ENT: denies: ear pain, throat pain Respiratory: shortness of breath. denies: cough, wheezing Cardiovascular: denies: chest pain, palpitations Endocrine: no symptoms reported Gastrointestinal: denies: abdominal pain, nausea, diarrhea Genitourinary: denies: urgency, dysuria Musculoskeletal: denies: back pain, joint swelling, arthralgia Skin: denies: rash, lesions Neurological: denies: headache, weakness, paresthesias Psychiatric: denies: anxiety, depression Hematological/Lymphatic: denies: easy bleeding, easy bruising ED Past Medical Hx - Past Medical History Hx Hypertension: Yes Hx Arthritis: Yes Additional medical history: chronic back pain - Surgical History Additional Surgical History: Ortho surgery - Social History Smoking Status: Former Smoker Substance Use Type: Alcohol - Medications Home Medications: Home Medications Medication Instructions Recorded Confirmed Last Taken Type Aspirin [Adult Low Dose Aspirin EC] 81 mg PO DAILY 04/25/17 07/27/18 07/27/18 History Diclofenac EC [Voltaren] 50 mg PO BID 04/25/17 07/27/18 07/27/18 History Doxazosin Mesylate 8 mg PO BID 04/25/17 07/27/18 07/27/18 History HYDROcodone/ACETAMINOPHEN 1 tab PO BID 04/25/17 07/27/18 07/27/18 History [HYDROcodone-Acetaminophn 10-325] Metoprolol [Lopressor TAB] 50 mg PO DAILY 04/25/17 07/27/18 07/27/18 History Pravastatin Sodium 80 mg PO QHS 04/25/17 07/27/18 07/26/18 History sulfaSALAzine [Sulfasalazine] 2 tab PO BID 05/02/17 07/27/18 07/27/18 History NIFEdipine [] 90 mg PO DAILY #30 tablet 02/21/18 07/27/18 07/27/18 Rx tiZANidine [Zanaflex 4mg TAB] 1 tab PO TID 07/27/18 07/27/18 07/27/18 History Ketorolac [Toradol] 10 mg PO Q6H PRN #12 tablet 02/15/19 Unknown Rx Amoxicillin/Potassium Clav 1 each PO BID #20 tablet 10/22/19 Unknown Rx [Augmentin 875-125 Tablet] Mometasone Furoate [Nasonex] 17 gm NS BID #1 spray.pump 10/22/19 Unknown Rx predniSONE [Deltasone] 50 mg PO QDAY #5 tab 10/22/19 Unknown Rx Albuterol INH(or & Nicu Only) 2 puff IH QID PRN #8.5 gram 11/11/19 Unknown Rx [ProAir HFA Inhaler] Prednisone [predniSONE 10 mg 10 mg PO .TAPER #1 tab.ds.pk 11/11/19 Unknown Rx (6-Day Pack, 21 Tabs)] ED Physical Exam - General Limitations: No Limitations General appearance: alert, in no apparent distress - Head Head exam: Present: atraumatic, normocephalic - Eye Eye exam: Present: normal appearance - Neck Neck exam: Present: normal inspection, full ROM. Absent: tenderness, meningismus, lymphadenopathy - Respiratory Respiratory exam: Present: normal lung sounds bilaterally. Absent: respiratory distress, wheezes, rales, rhonchi, stridor, chest wall tenderness, accessory muscle use, decreased breath sounds, prolonged expiratory - Cardiovascular Cardiovascular Exam: Present: regular rate, normal rhythm, normal heart sounds. Absent: bradycardia, tachycardia, irregular rhythm, systolic murmur, diastolic murmur, rubs, gallop - GI/Abdominal GI/Abdominal exam: Present: soft, normal bowel sounds. Absent: distended, tenderness, guarding, rebound, rigid, diminished bowel sounds - Extremities Exam Extremities exam: Present: normal inspection, full ROM - Back Exam Back exam: Present: normal inspection, full ROM. Absent: tenderness, CVA tenderness (R), CVA tenderness (L), muscle spasm, paraspinal tenderness, vertebral tenderness, rash noted - Neurological Exam Neurological exam: Present: alert, oriented X3, normal gait - Psychiatric Psychiatric exam: Present: normal affect, normal mood - Skin Skin exam: Present: warm, dry, intact, normal color. Absent: rash ED Course Vital Signs 11/11/19 14:02 Temperature 97.7 F Pulse Rate 72 Respiratory 18 Rate Blood Pressure 147/91 O2 Sat by Pulse 98 Oximetry - Reevaluation(s) Reevaluation #1: 11/11/19 15:59 Patient is speaking in full sentences with no signs of distress noted. - Consultations Consultation #1: 11/11/19 15:59 Patient has been consulted with Jameson Gu about patient history, physical exam, and labs/EKG results and agrees to ED plan of care. Consultation #2: 11/11/19 17:31 Patient has been consulted with Jameson Gu about patient history, physical exam, and labs/EKG/and imaging studies and patient can be discharged with follow-up. ED Medical Decision Making - Lab Data Result diagrams: 11/11/19 14:06 11/11/19 14:06 - EKG Data When compared to previous EKG there are: no significant change Interpretation: no acute changes, other (Lateral T wave inversion that is similar to previous EKG in 2017.) 11/11/19 17:35 Signed and reviewed by Dr. Fajardo. - Medical Decision Making This is a 64-year-old male that presents with shortness of breathe. Patient is stable and was examined by me and Dr. Fajardo. MITZI and HEART score 0 pints. Slight elevated d-dimmer. Patient had a normal stress test in the year of 2018 and echocardiogram has been obtained in 2018 with no significant abnormalities. CTA of chest obtained and dictated by the radiologist unremarkable. EKG with no acute changes since 2017. Chest xray dictated by the radiologist within normal limits. PAtient is notified of the Xray report with no questions noted. Labs within normal limits. Negative troponin x2. Patient received breathing treatm ent in the ED which he stated his symptoms are improving subsided. I will discharge patient with albuterol and prednisone. Patient was instructed to Follow-up with a primary care/materials clerk doctor in 2 days or if symptoms worsen and continue return to emergency room as soon as possible. At time of discharge, the patient does not seem toxic or ill in appearance. No acute signs of distress noted. Patient agrees to discharge treatment plan of care. No further questions noted by the patient. Critical care attestation.: If time is entered above; I have spent that time in minutes in the direct care of this critically ill patient, excluding procedure time. ED Disposition Clinical Impression: Shortness of breath Disposition: DC-01 TO HOME OR SELFCARE Is pt being admited?: No Does the pt Need Aspirin: No Condition: Stable Instructions: Dyspnea (ED) Additional Instructions: Follow-up with a primary care/materials clerk doctor in [place] or if symptoms worsen and continue return to emergency room as soon as possible. Prescriptions: Prednisone [predniSONE 10 mg (6-Day Pack, 21 Tabs)] 10 mg PO .TAPER #1 tab.ds.pk Albuterol INH(or & Nicu Only) [ProAir HFA Inhaler] 2 puff IH QID PRN #8.5 gram PRN Reason: Shortness Of Breath Referrals: DEMETRI ADKINS MD [Primary Care Provider] - 3-5 Days PRIMARY MD HALIMA [Referring] - 3-5 Days TRAN YOUNG MD [Staff Physician] - 3-5 Days KOKO AGUSTIN MD [Staff Physician] - [place] Forms: Work/School Release Form(ED)
--- NOTE | 2019-11-11 16:02 | Cat Scan Report ---
CTA CHEST WITH IV CONTRAST INDICATION: Shortness of breath. TECHNIQUE: Axial CT images were obtained through the chest after injection of 100 mL Omnipaque 350 IV contrast. 3 plane MIP reconstructions were produced. All CT scans at this location are performed using CT dose reduction for ALARA by means of automated exposure control. COMPARISON: None available. FINDINGS: Pulmonary Arteries: No pulmonary emboli. Lungs: No significant abnormality. Trachea and Bronchi: No significant abnormality. Heart and Pericardium: No significant abnormality. Vasculature: No significant abnormality. Lymphatics: No lymphadenopathy. Additional Findings: None. Upper Abdomen: No acute findings. Skeletal Structures: No significant osseous abnormality. IMPRESSION: 1. No CT evidence for pulmonary embolism. 2. No acute findings. Signer Name: Bryan Barnhart MD Signed: 11/11/2019 3:58 PM Workstation Name: [id number]
[2019-11-11 17:51] VITALS: BP 140/90
== END 2019-11-11 17:50 | disposition home or self-care (01) ==
LOC: ED 13:48
DX: R06.02 Shortness of breath (principal); I10 Essential (primary) hypertension; M19.90 Unspecified osteoarthritis, unspecified site; Z98.890 Other specified postprocedural states; Z87.891 Personal history of nicotine dependence; Z79.82 Long term (current) use of aspirin; Z79.899 Other long term (current) drug therapy
CPT/HCPCS: 36415; 71046; 71275; 80053; 84484; 85025; 85379; 85610; 85730; 93005; 93010; 94640; 99285; Q9967

== ENCOUNTER 2020-01-06 06:18 | Emergency (ER) | payer BC ==
[2020-01-06] MEDS ORDERED: HYDROmorphone 1 MG/1 ML INJ IM ONE (06:44)
[2020-01-06 06:45] VITALS: BP 159/92
[2020-01-06] MEDS ORDERED: ONDANSETRON 4 MG ODT TAB PO ONE (06:45)
[2020-01-06] MEDS ORDERED: KETOROLAC 30 MG/1 ML INJ IM ONE (06:45)
--- NOTE | 2020-01-06 07:13 | Emergency Department Report ---
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 He states that he has had back pain radiating/burning down his left leg. Back pain is towards the left side of his back where he presumes his hardware is located from a lumbar fusion in 2016. He does not report any fever or chills. He denies any neurological change. Apparently he has had similar type pain in the past he states. He is currently receiving chronic pain management. He does not currently have an orthopedist. He denies any recent injury. He denies any focal weakness or numbness. He has had no bowel or bladder problems. -: Gradual, days(s) (4 days) Location: left (Lumbar) Radiation: other (Some burning sensation down left leg) Severity scale (0 -10): 9 Quality: aching Consistency: constant Improves with: none Worsens with: none Associated Symptoms: denies other symptoms Treatments Prior to Arrival: other (Chronic pain management) - Related Data Home Medications Medication Instructions Recorded Confirmed Last Taken Aspirin [Adult Low Dose Aspirin EC] 81 mg PO DAILY 04/25/17 07/27/18 07/27/18 Diclofenac EC [Voltaren] 50 mg PO BID 04/25/17 07/27/18 07/27/18 Doxazosin Mesylate 8 mg PO BID 04/25/17 07/27/18 07/27/18 HYDROcodone/ACETAMINOPHEN 1 tab PO BID 04/25/17 07/27/18 07/27/18 [HYDROcodone-Acetaminophn 10-325] Metoprolol [Lopressor TAB] 50 mg PO DAILY 04/25/17 07/27/18 07/27/18 Pravastatin Sodium 80 mg PO QHS 04/25/17 07/27/18 07/26/18 sulfaSALAzine [Sulfasalazine] 2 tab PO BID 05/02/17 07/27/18 07/27/18 tiZANidine [Zanaflex 4mg TAB] 1 tab PO TID 07/27/18 07/27/18 07/27/18 Previous Rx's Medication Instructions Recorded Last Taken Type NIFEdipine [] 90 mg PO DAILY #30 tablet 02/21/18 07/27/18 Rx Ketorolac [Toradol] 10 mg PO Q6H PRN #12 tablet 02/15/19 Unknown Rx Amoxicillin/Potassium Clav 1 each PO BID #20 tablet 10/22/19 Unknown Rx [Augmentin 875-125 Tablet] Mometasone Furoate [Nasonex] 17 gm NS BID #1 spray.pump 10/22/19 Unknown Rx predniSONE [Deltasone] 50 mg PO QDAY #5 tab 10/22/19 Unknown Rx Albuterol INH(or & Nicu Only) 2 puff IH QID PRN #8.5 gram 11/11/19 Unknown Rx [ProAir HFA Inhaler] Prednisone [predniSONE 10 mg 10 mg PO .TAPER #1 tab.ds.pk 11/11/19 Unknown Rx (6-Day Pack, 21 Tabs)] Allergies Allergy/AdvReac Type Severity Reaction Status Date / Time No Known Allergies Allergy Verified 10/22/19 07:54 ED Review of Systems ROS: Stated complaint: BACK PAIN Other details as noted in HPI Constitutional: denies: chills, fever Eyes: denies: eye pain, vision change ENT: denies: ear pain, throat pain Respiratory: denies: cough, shortness of breath Cardiovascular: denies: chest pain, dyspnea on exertion Endocrine: no symptoms reported Gastrointestinal: diarrhea. denies: abdominal pain, nausea Genitourinary: denies: urgency, dysuria Musculoskeletal: as per HPI, back pain. denies: joint swelling, arthralgia Skin: as per HPI (Noted a swelling area in the left pretibial region. Does not recall an injury.). denies: rash, lesions Neurological: denies: headache, weakness, paresthesias Psychiatric: denies: anxiety, depression Hematological/Lymphatic: denies: easy bleeding, easy bruising ED Past Medical Hx - Past Medical History Hx Hypertension: Yes Hx Arthritis: Yes Additional medical history: chronic back pain - Surgical History Additional Surgical History: Ortho surgery - Social History Smoking Status: Never Smoker Substance Use Type: None - Medications Home Medications: Home Medications Medication Instructions Recorded Confirmed Last Taken Type Aspirin [Adult Low Dose Aspirin EC] 81 mg PO DAILY 04/25/17 07/27/18 07/27/18 History Diclofenac EC [Voltaren] 50 mg PO BID 0907/27/18 07/27/18 History Doxazosin Mesylate 8 mg PO BID 04/25/17 07/27/18 07/27/18 History HYDROcodone/ACETAMINOPHEN 1 tab PO BID 04/25/17 07/27/18 07/27/18 History [HYDROcodone-Acetaminophn 10-325] Metoprolol [Lopressor TAB] 50 mg PO DAILY 04/25/17 07/27/18 07/27/18 History Pravastatin Sodium 80 mg PO QHS 04/25/17 07/27/18 07/26/18 History sulfaSALAzine [Sulfasalazine] 2 tab PO BID 05/02/17 07/27/18 07/27/18 History NIFEdipine [] 90 mg PO DAILY #30 tablet 02/21/18 07/27/18 07/27/18 Rx tiZANidine [Zanaflex 4mg TAB] 1 tab PO TID 07/27/18 07/27/18 07/27/18 History Ketorolac [Toradol] 10 mg PO Q6H PRN #12 tablet 02/15/19 Unknown Rx Amoxicillin/Potassium Clav 1 each PO BID #20 tablet 10/22/19 Unknown Rx [Augmentin 875-125 Tablet] Mometasone Furoate [Nasonex] 17 gm NS BID #1 spray.pump 10/22/19 Unknown Rx predniSONE [Deltasone] 50 mg PO QDAY #5 tab 10/22/19 Unknown Rx Albuterol INH(or & Nicu Only) 2 puff IH QID PRN #8.5 gram 11/11/19 Unknown Rx [ProAir HFA Inhaler] Prednisone [predniSONE 10 mg 10 mg PO .TAPER #1 tab.ds.pk 11/11/19 Unknown Rx (6-Day Pack, 21 Tabs)] ED Physical Exam - General Limitations: Physical Limitation General appearance: other (Appears uncomfortable) - Head Head exam: Present: atraumatic, normocephalic - Eye Eye exam: Present: normal appearance. Absent: scleral icterus - ENT ENT exam: Present: mucous membranes moist - Neck Neck exam: Present: normal inspection. Absent: tenderness - Respiratory Respiratory exam: Present: normal lung sounds bilaterally. Absent: respiratory distress - Cardiovascular Cardiovascular Exam: Present: regular rate, normal rhythm. Absent: systolic murmur, diastolic murmur, rubs, gallop - GI/Abdominal GI/Abdominal exam: Present: soft, normal bowel sounds. Absent: distended, tenderness, guarding, rebound - Rectal Rectal exam: Present: deferred - Extremities Exam Extremities exam: Present: normal inspection - Back Exam Back exam: Present: normal inspection, muscle spasm, paraspinal tenderness (Diffuse lumbar area). Absent: vertebral tenderness - Neurological Exam Neurological exam: Present: alert, oriented X3, CN II-XII intact, other (Normal dorsi and plantar flexion). Absent: motor sensory deficit - Psychiatric Psychiatric exam: Present: normal affect, normal mood - Skin Skin exam: Present: warm, dry, intact, normal color. Absent: rash ED Course Vital Signs 01/06/20 01/06/20 01/06/20 06:44 07:04 07:07 Temperature 97.9 F Pulse Rate 76 Respiratory 16 19 19 Rate Blood Pressure 159/92 [Right] O2 Sat by Pulse 98 Oximetry - Reevaluation(s) Reevaluation #1: Analgesia. We will check a CT. 01/06/20 07:15 Reevaluation #2: Patient is clinically improved. The CT results do not dictate an emergent need for MRI. He is to follow-up with orthopedist and chronic pain management. 01/06/20 08:04 ED Medical Decision Making - Radiology Data FINDINGS: Alignment: There has been previous posterior fusion from L3-L5 with disc spacer placement at L3-4 and L4-5. There is 2 mm retrolisthesis of L2 with respect to L3. The remaining lumbar vertebra are normal in alignment. Bones: There is no acute osseous abnormality. Moderate to severe disc space narrowing, marginal spurring and vacuum phenomenon is noted at L2-3. Mild to moderate bilateral neural foraminal narrowing is estimated at 50% at this level. There is partial bony fusion of the L3-4 and L4-5 disc spaces. L1-2 is unremarkable. Mild posterior bulging disc and minimal vacuum phenomenon is noted at L5-S1. There is diffuse facet arthropathy with hypertrophic changes and heterotopic calcifications from L3-L5. Moderate right neural foraminal narrowing is suspected at L4-5 and L5-S1. Soft tissues: Paraspinal soft tissues are unremarkable. Although intraspinal contents can be obscured on CT, no large epidural hematoma or other epidural process is appreciated. IMPRESSION: No acute abnormality is detected. Previous posterior fusion changes are noted at L3-5. Moderate to severe degenerative changes at L2-3. Diffuse facet arthropathy with hypertrophic changes. Critical care attestation.: If time is entered above; I have spent that time in minutes in the direct care of this critically ill patient, excluding procedure time. ED Disposition Clinical Impression: History of lumbar fusion Lower back pain Qualifiers: Chronicity: acute Back pain laterality: left Sciatica presence: with sciatica Sciatica laterality: sciatica of left side Qualified Code(s): M54.42 - Lumbago with sciatica, left side Disposition: TO HOME OR SELFCARE Is pt being admited?: No Does the pt Need Aspirin: No Condition: Stable Instructions: Acute Low Back Pain (ED), Chronic Back Pain (ED) Additional Instructions: Further pain management with your pain management physician. Follow-up with orthopedist. If there is any acute change or problem, please return and we will consider further evaluation. You probably would benefit from a outpatient MRI chest. See the orthopedist concerning this. Referrals: DEMETRI ADKINS MD [Primary Care Provider] - 3-5 Days ARNOL WILKINSON MD [Staff Physician] - 2-3 Days Time of Disposition: 08:06
--- NOTE | 2020-01-06 07:35 | Cat Scan Report ---
CT LUMBAR SPINE WITHOUT CONTRAST INDICATION: MAIN: lumbar pain l side fusion 2016 pain x 3 days. TECHNIQUE: Axial imaging performed through the lumbar spine without the use of contrast. Sagittal a nd coronal reconstructed images were also reviewed. All CT scans at this location are performed usin g CT dose reduction for ALARA by means of automated exposure control. COMPARISON: None FINDINGS: Alignment: There has been previous posterior fusion from L3-L5 with disc spacer placement at L3-4 an d L4-5. There is 2 mm retrolisthesis of L2 with respect to L3. The remaining lumbar vertebra are norm al in alignment. Bones: There is no acute osseous abnormality. Moderate to severe disc space narrowing, marginal spu rring and vacuum phenomenon is noted at L2-3. Mild to moderate bilateral neural foraminal narrowing i s estimated at 50% at this level. There is partial bony fusion of the L3-4 and L4-5 disc spaces. L1-2 is unremarkable. Mild posterior bulging disc and minimal vacuum phenomenon is noted at L5-S1. There is diffuse facet arthropathy with hypertrophic changes and heterotopic calcifications from L3-L5. Mo derate right neural foraminal narrowing is suspected at L4-5 and L5-S1. Soft tissues: Paraspinal soft tissues are unremarkable. Although intraspinal contents can be obscure d on CT, no large epidural hematoma or other epidural process is appreciated. IMPRESSION: No acute abnormality is detected. Previous posterior fusion changes are noted at L3-5. M oderate to severe degenerative changes at L2-3. Diffuse facet arthropathy with hypertrophic changes. Signer Name: Scott Sutherland Jr, MD Signed: 01/06/2020 7:31 AM Workstation Name: [id number]
== END 2020-01-06 08:24 | disposition home or self-care (01) ==
LOC: ED 06:18 → EEVIPCON 06:18 → ED 08:24
DX: M54.5 Low back pain (principal); I10 Essential (primary) hypertension; M19.91 Primary osteoarthritis, unspecified site; Z98.890 Other specified postprocedural states; Z79.899 Other long term (current) drug therapy; Z79.2 Long term (current) use of antibiotics
CPT/HCPCS: 72131; 96372; 99283; J1170; J1885; Q0162

== ENCOUNTER 2020-02-21 06:53 | Outpatient (CLI) | payer BC ==
--- NOTE | 2020-02-21 08:55 | Magnetic Resonance Report ---
MR lumbar spine wo/w con INDICATION / CLINICAL INFORMATION: 64 years Male; MAIN. Low back pain. TECHNIQUE: Multisequence, multiplanar images of the lumbar spine were obtained. COMPARISON: CT-01/06/2020 FINDINGS: POST-SURGICAL CHANGES: Posterior fusion hardware seen from L3 through L5-bilateral intrapedicular scr ews noted. Interbody grafts seen at these levels, as well. ALIGNMENT: Normal lumbar lordosis without significant scoliosis. VERTEBRAE:Mild anterior wedging seen at L2-not significantly changed from prior. Modic type I endplat e changes seen at L2-3. These findings may be a source of pain. VISUALIZED SPINAL CORD: No significant abnormality. Conus is grossly normal in appearance. INTERVERTEBRAL DISCS: Multilevel disc desiccation noted. Disc space narrowing seen at L2-3. [id number] ANALYSIS: L1-2: Mild facet hypertrophy. Minimal disc bulge. No significant sequela. L2-3: Mild to moderate disc bulge and [id number] facet hypertrophy. Small right lateral recess disc protrusion is seen with disc material extending to the pedicular level of L3. There is mild late ral recess narrowing on the right without impingement. Overall there is moderate foraminal narrowing bilaterally from spondylosis and/or facet hypertrophy, which encroaches upon the exiting L2 nerves. N o impingement seen. L3-4: As above. No significant canal stenosis or foraminal narrowing. L4-5: As above. Mild to moderate foraminal narrowing on the right without significant sequela. L5-S1: Mild to moderate disc bulge. Moderate facet/borderline ligamentum flavum hypertrophy. Mild can al narrowing. Broad-based foraminal/extraforaminal disc protrusion is seen on the left. There is encr oachment upon the left L5 nerve without impingement. Moderate foraminal narrowing on the right from f acet/ligamentum flavum hypertrophy and minimal spondylosis. Again, there is encroachment upon the rig ht L5 nerve without impingement. PARASPINAL SOFT TISSUES: No significant abnormality. ADDITIONAL FINDINGS: Simple cyst seen in the left kidney. IMPRESSION: 1. Degenerative and postoperative changes of the lumbar spine as described above. Most marked finding s appear to be at L2-3, followed by L5-S1. Please correlate with dermatomal distribution of patient's symptoms, if present. Signer Name: Don Crump MD, III Signed: 02/21/2020 8:51 AM Workstation Name: [id number]
== END 2020-02-21 06:54 | disposition home or self-care (01) ==
LOC: MRI 06:53
PROVIDERS: ATTEND Anesthesiology
DX: M51.27 Other intervertebral disc displacement, lumbosacral region (principal); M47.816 Spondylosis without myelopathy or radiculopathy, lumbar region; M48.07 Spinal stenosis, lumbosacral region; M40.46 Postural lordosis, lumbar region
CPT/HCPCS: 72158; A9577

== ENCOUNTER 2020-08-11 10:17 | Outpatient (CLI) | payer BC ==
[2020-08-11 11:41] LABS: Hematocrit 38.9 % (35.5-45.6); Mean Corpuscular HGB Conc 34 % (32-34); Mean Corpuscular Volume 98 fl (84-94); Platelet Count 150 K/mm3 (140-440); Red Blood Count 3.96 M/mm3 (3.65-5.03); Red Cell Distribution Width 14.3 % (13.2-15.2)
[2020-08-11 11:58] LABS: Alanine Aminotransferase 27 units/L (7-56); Albumin 4.8 g/dL (3.9-5); BUN/Creatinine Ratio 13; Blood Urea Nitrogen 10 mg/dL (9-20); Calcium 9.5 mg/dL (8.4-10.2); Hemolysis Index 1
[2020-08-11 12:11] LABS: Erythrocyte Sedimentation Rate 2 mm/Hr (0-20)
== END 2020-08-11 10:18 | disposition home or self-care (01) ==
LOC: LAB 10:17
PROVIDERS: ATTEND Family Medicine Adult Medicine
DX: K51.00 Ulcerative (chronic) pancolitis without complications (principal)
CPT/HCPCS: 36415; 80053; 82747; 85027; 85652; 86140

== ENCOUNTER 2020-09-30 07:17 | Emergency (ER) | payer BC ==
[2020-09-30 07:29] VITALS: BP 135/77
--- NOTE | 2020-09-30 08:07 | Emergency Department Report ---
ED Medical Clearance HPI - General Chief complaint: Medical Clearance Stated complaint: RX REFILL Source: patient Mode of arrival: Ambulatory - History of Present Illness Initial comments: 65-year-old -[place] male presents to the emergency room requesting a refill on his muscle relaxant. Patient states that he is not able to get into his primary care provider until the . Patient reports that he takes Zanaflex 4 mg for muscle spasms. Patient denies any new injury. Reason for Medical Clearance: other (Medication refill) Treatments Prior to Arrival: none Home medications: Home Medications Medication Instructions Recorded Confirmed Last Taken Aspirin [Adult Low Dose Aspirin EC] 81 mg PO DAILY 04/25/17 07/27/18 07/27/18 Diclofenac EC [Voltaren] 50 mg PO BID 04/25/17 07/27/18 07/27/18 Doxazosin Mesylate 8 mg PO BID 04/25/17 07/27/18 07/27/18 HYDROcodone/ACETAMINOPHEN 1 tab PO BID 04/25/17 07/27/18 07/27/18 [HYDROcodone-Acetaminophn 10-325] Metoprolol [Lopressor TAB] 50 mg PO DAILY 04/25/17 07/27/18 07/27/18 Pravastatin Sodium 80 mg PO QHS 04/25/17 07/27/18 07/26/18 sulfaSALAzine [Sulfasalazine] 2 tab PO BID 05/02/17 07/27/18 07/27/18 tiZANidine [Zanaflex 4mg TAB] 1 tab PO TID 07/27/18 07/27/18 07/27/18 Previous Rx's Medication Instructions Recorded Last Taken Type NIFEdipine [] 90 mg PO DAILY #30 tablet 02/21/18 07/27/18 Rx Ketorolac [Toradol] 10 mg PO Q6H PRN #12 tablet 02/15/19 Unknown Rx Amoxicillin/Potassium Clav 1 each PO BID #20 tablet 10/22/19 Unknown Rx [Augmentin 875-125 Tablet] Mometasone Furoate [Nasonex] 17 gm NS BID #1 spray.pump 10/22/19 Unknown Rx predniSONE [Deltasone] 50 mg PO QDAY #5 tab 10/22/19 Unknown Rx Albuterol Mdi (or & Nicu Only) 2 puff IH QID PRN #8.5 gram 11/11/19 Unknown Rx [ProAir HFA Inhaler] Prednisone [predniSONE 10 mg 10 mg PO .TAPER #1 tab.ds.pk 11/11/19 Unknown Rx (6-Day Pack, 21 Tabs)] tiZANidine [Zanaflex 4mg TAB] 4 mg PO Q8H PRN #30 tablet 09/30/20 Unknown Rx Allergies/Adverse reactions: Allergies Allergy/AdvReac Type Severity Reaction Status Date / Time No Known Allergies Allergy Verified 10/22/19 07:54 ED Review of Systems ROS: Stated complaint: RX REFILL Other details as noted in HPI Comment: All other systems reviewed and negative ED Past Medical Hx - Past Medical History Hx Hypertension: Yes Hx Arthritis: Yes Additional medical history: chronic back pain - Surgical History Additional Surgical History: Ortho surgery - Social History Smoking Status: Never Smoker Substance Use Type: None - Medications Home Medications: Home Medications Medication Instructions Recorded Confirmed Last Taken Type Aspirin [Adult Low Dose Aspirin EC] 81 mg PO DAILY 04/25/17 07/27/18 07/27/18 History Diclofenac EC [Voltaren] 50 mg PO BID 04/25/17 07/27/18 07/27/18 History Doxazosin Mesylate 8 mg PO BID 04/25/17 07/27/18 07/27/18 History HYDROcodone/ACETAMINOPHEN 1 tab PO BID 04/25/17 07/27/18 07/27/18 History [HYDROcodone-Acetaminophn 10-325] Metoprolol [Lopressor TAB] 50 mg PO DAILY 04/25/17 07/27/18 07/27/18 History Pravastatin Sodium 80 mg PO QHS 04/25/17 07/27/18 07/26/18 History sulfaSALAzine [Sulfasalazine] 2 tab PO BID 05/02/17 07/27/18 07/27/18 History NIFEdipine [] 90 mg PO DAILY #30 tablet 02/21/18 07/27/18 07/27/18 Rx tiZANidine [Zanaflex 4mg TAB] 1 tab PO TID 07/27/18 07/27/18 07/27/18 History Ketorolac [Toradol] 10 mg PO Q6H PRN #12 tablet 02/15/19 Unknown Rx Amoxicillin/Potassium Clav 1 each PO BID #20 tablet 10/22/19 Unknown Rx [Augmentin 875-125 Tablet] Mometasone Furoate [Nasonex] 17 gm NS BID #1 spray.pump 10/22/19 Unknown Rx predniSONE [Deltasone] 50 mg PO QDAY #5 tab 10/22/19 Unknown Rx Albuterol Mdi (or & Nicu Only) 2 puff IH QID PRN #8.5 gram 11/11/19 Unknown Rx [ProAir HFA Inhaler] Prednisone [predniSONE 10 mg 10 mg PO .TAPER #1 tab.ds.pk 11/11/19 Unknown Rx (6-Day Pack, 21 Tabs)] tiZANidine [Zanaflex 4mg TAB] 4 mg PO Q8H PRN #30 tablet 09/30/20 Unknown Rx ED Physical Exam - General Limitations: No Limitations General appearance: alert, in no apparent distress - Head Head exam: Present: atraumatic, normocephalic - ENT ENT exam: Present: mucous membranes moist - Neck Neck exam: Present: normal inspection, full ROM - Respiratory Respiratory exam: Present: chest wall tenderness. Absent: accessory muscle use - Extremities Exam Extremities exam: Present: normal inspection, full ROM - Back Exam Back exam: Present: normal inspection, full ROM - Neurological Exam Neurological exam: Present: alert, oriented X3, normal gait - Psychiatric Psychiatric exam: Present: normal affect, normal mood - Skin Skin exam: Present: warm, dry, intact, normal color. Absent: rash ED Course Vital Signs 09/30/20 09/30/20 07:26 07:46 Temperature 97.9 F Pulse Rate 68 70 Respiratory 16 16 Rate Blood Pressure 135/77 O2 Sat by Pulse 99 Oximetry ED Medical Decision Making - Medical Decision Making 65-year-old -[place] male presents to the emergency room requesting a refill on his muscle relaxant. Patient states that he is not able to get into his primary care provider until the . Patient reports that he takes Zanaflex 4 mg for muscle spasms. Patient denies any new injury. Refill on Zanaflex 4 mg ED Disposition Clinical Impression: Muscle spasm, Medication refill Disposition: TO HOME OR SELFCARE Is pt being admited?: No Does the pt Need Aspirin: No Condition: Stable Instructions: Muscle Cramps and Spasms, [id number] Additional Instructions: Please take medication as prescribed. Follow-up with your primary care provider or pain specialist. Prescriptions: tiZANidine [Zanaflex 4mg TAB] 4 mg PO Q8H PRN #30 tablet PRN Reason: Muscle Spasm Referrals: Your, healthcare provider [Other] - 3-5 Days
== END 2020-09-30 08:22 | disposition home or self-care (01) ==
LOC: ED 07:17
DX: M62.838 Other muscle spasm (principal); I10 Essential (primary) hypertension; M19.90 Unspecified osteoarthritis, unspecified site; Z76.0 Encounter for issue of repeat prescription; Z98.890 Other specified postprocedural states; Z79.899 Other long term (current) drug therapy
CPT/HCPCS: 99282

== ENCOUNTER 2020-11-01 07:29 | Emergency (ER) | payer BC ==
[2020-11-01 07:32] VITALS: BP 144/93
--- NOTE | 2020-11-01 07:35 | Emergency Department Report ---
Chief Complaint: Recheck/Abnormal Lab/Rx Stated Complaint: MED REFILL Time Seen by Provider: 11/01/20 07:33 - HPI History of Present Illness: In the process of changing MD's Med refill for xanaflex No pain at present No new trauma/fall - ROS Review of Systems: no complaints - Exam Vital Signs: Vital Signs 11/01/20 07:30 Temperature 97.9 F Pulse Rate 61 Respiratory 18 Rate Blood Pressure 144/93 O2 Sat by Pulse 97 Oximetry Physical Exam: a/o s1s2 neuro intact lungs cta abd snt MSE screening note: Focused history and physical exam performed. Due to findings the following was ordered: mse out- non life threat Patient discussed with doctor:: GINA SEBASTIAN ED Disposition for MSE Disposition: MED SCREENING EXAM-LEFT Condition: Stable Prescriptions: tiZANidine [Zanaflex 4mg TAB] 4 mg PO Q8H PRN #90 tablet PRN Reason: Muscle Spasm Referrals: DEMETRI ADKINS MD [Primary Care Provider] - 3-5 Days
== END 2020-11-01 07:39 | disposition left against medical advice (07) ==
LOC: ED 07:29
DX: Z76.0 Encounter for issue of repeat prescription (principal); Z53.21 Procedure and treatment not carried out due to patient leaving prior to being seen by health care provider

== ENCOUNTER 2020-11-22 11:13 | Emergency (ER) | payer BC ==
[2020-11-22 11:17] VITALS: BP 144/95
--- NOTE | 2020-11-22 11:37 | Emergency Department Report ---
ED Back Pain/Injury HPI - General Chief Complaint: Back Pain/Injury Stated Complaint: BACK PAIN Time Seen by Provider: 11/22/20 11:32 Source: patient Limitations: No Limitations - History of Present Illness Initial Comments: 65 yo male come to ER a a/c back pain; no new fall or trauma. Pt is out of his home meds and is in the process of changing providers to get his back inject ions. No s/s cauda equina Drove self to ER and is ambulatory to [facility] MD Complaint: back pain Similar Symptoms Previously: Yes Radiation: none Consistency: constant Improves With: medication Worsens With: movement Associated Symptoms: denies other symptoms - Related Data Home Medications Medication Instructions Recorded Confirmed Last Taken Aspirin [Adult Low Dose Aspirin EC] 81 mg PO DAILY 04/25/17 07/27/18 07/27/18 Doxazosin Mesylate 8 mg PO BID 04/25/17 07/27/18 07/27/18 HYDROcodone/ACETAMINOPHEN 1 tab PO BID 04/25/17 07/27/18 07/27/18 [HYDROcodone-Acetaminophn 10-325] Metoprolol [Lopressor TAB] 50 mg PO DAILY 04/25/17 07/27/18 07/27/18 Pravastatin Sodium 80 mg PO QHS 04/25/17 07/27/18 07/26/18 sulfaSALAzine [Sulfasalazine] 2 tab PO BID 05/02/17 07/27/18 07/27/18 Previous Rx's Medication Instructions Recorded Last Taken Type NIFEdipine [] 90 mg PO DAILY #30 tablet 02/21/18 07/27/18 Rx tiZANidine [Zanaflex 4mg TAB] 4 mg PO Q8H PRN #90 tablet 11/01/20 Unknown Rx Diclofenac EC [Voltaren] 50 mg PO BID #60 each 11/22/20 Unknown Rx HYDROcodone/APAP 5-325 [[place] 1 each PO BID PRN #30 tablet 11/22/20 Unknown Rx 5/325] Allergies Allergy/AdvReac Type Severity Reaction Status Date / Time No Known Allergies Allergy Verified 11/01/20 07:30 ED Review of Systems ROS: Stated complaint: BACK PAIN Other details as noted in HPI Comment: All other systems reviewed and negative ED Past Medical Hx - Past Medical History Medical history: hypertension chronic back pain; hld Psychiatric history: no pertinent history Family history: no significant family history - Social History Alcohol use: none Drug use: none ED Back Pain Physical Exam - Exam General: Vital signs noted. No distress. Alert and acting appropriately. Back/Abdomen: No Abdominal Tenderness, No Perithoracic Tenderness, No Perilumbar Tenderness, No Sacroiliac Tenderness, No Flank Tenderness, No Straight Leg Raise Pain Neuro: Yes Normal Sensation, Yes Normal DTR's, Yes Normal Gait, No Motor Weakness ED Course Vital Signs 11/22/20 11:16 Temperature 97.9 F Pulse Rate 83 Respiratory 16 Rate Blood Pressure 144/95 [Right] O2 Sat by Pulse 99 Oximetry ED Medical Decision Making - Medical Decision Making Vital Signs 11/22/20 11:16 Temperature 97.9 F Pulse Rate 83 Respiratory 16 Rate Blood Pressure 144/95 [Right] O2 Sat by Pulse [address] Marcia denise home with [facility] plan of care. Pt already has follow up appointment. - Differential Diagnosis a/c back pain Critical care attestation.: If time is entered above; I have spent that time in minutes in the direct care of this critically ill patient, excluding procedure time. ED Disposition Clinical Impression: Chronic pain Disposition: DC-01 TO HOME OR SELFCARE Is pt being admited?: No Does the pt Need Aspirin: No Condition: Stable Instructions: Chronic Pain, Adult Prescriptions: HYDROcodone/APAP 5-325 [[place] 5/325] 1 each PO BID PRN #30 tablet PRN Reason: Pain , Severe (7-10) Diclofenac EC [Voltaren] 50 mg PO BID #60 each Time of Disposition: 11:33
== END 2020-11-22 18:01 | disposition home or self-care (01) ==
LOC: ED 11:13
DX: G89.29 Other chronic pain (principal); I10 Essential (primary) hypertension; Z79.899 Other long term (current) drug therapy
CPT/HCPCS: 99282

== ENCOUNTER 2020-12-19 08:38 | Outpatient (CLI) | payer BC ==
[2020-12-19 09:21] LABS: Basophils % (Auto) 0.3 % (0.0-1.8); Eosinophils % (Auto) 0.4 % (0.0-4.3); Hemoglobin 13.6 gm/dl (11.8-15.2); Lymphocytes # (Auto) 1.5 K/mm3 (1.2-5.4); Lymphocytes % (Auto) 28.1 % (13.4-35.0); Mean Corpuscular HGB Conc 34 % (32-34); Mean Corpuscular Volume 97 fl (84-94); Monocytes # (Auto) 0.5 K/mm3 (0.0-0.8); Monocytes % (Auto) 8.7 % (0.0-7.3); Platelet Count 183 K/mm3 (140-440); Red Blood Count 4.13 M/mm3 (3.65-5.03)
[2020-12-19 10:09] LABS: Alanine Aminotransferase 23 units/L (7-56); Albumin 4.5 g/dL (3.9-5); BUN/Creatinine Ratio 13; Blood Urea Nitrogen 12 mg/dL (9-20); Calcium 9.3 mg/dL (8.4-10.2); Chol/HDL Ratio 3.29 %; HDL Cholesterol 47 mg/dL (40-59); Hemolysis Index 6; LDL Cholesterol,Direct 99 mg/dL (50-130)
[2020-12-19 10:35] LABS: Bilirubin,Urine NEG (Negative); Blood,Urine NEG (Negative); Color,Urine Yellow (Yellow); Mucus,Urine FEW /HPF
== END 2020-12-19 08:39 | disposition home or self-care (01) ==
LOC: LAB 08:38
PROVIDERS: ATTEND Physician Assistant
DX: Z13.0 Encounter for screening for diseases of the blood and blood-forming organs and certain disorders involving the immune mechanism (principal); Z13.29 Encounter for screening for other suspected endocrine disorder; Z11.4 Encounter for screening for human immunodeficiency virus [HIV]; Z11.3 Encounter for screening for infections with a predominantly sexual mode of transmission; Z11.2 Encounter for screening for other bacterial diseases; Z12.5 Encounter for screening for malignant neoplasm of prostate; I10 Essential (primary) hypertension; E78.2 Mixed hyperlipidemia
CPT/HCPCS: 36415; 80053; 80061; 81001; 84153; 84443; 85025; 86592; 86689; 87591

== ENCOUNTER 2021-07-17 07:18 | Outpatient (CLI) | payer BC ==
--- NOTE | 2021-07-17 18:45 | Nuclear Medicine Report ---
APPROVED REPORT Exam: Nuclear Stress Test Indication: Chest pain [facility] #: O/P Ht: 5 ft 10 in Wt: 195 lbs BSA: 2.07 m2 BMI: 27.97 Rhythm: Sinus Bradycardia Stress Test Details Stress Test: Exercise stress testing was performed using a Darrick protocol. HR Resting HR: 52 bpm Max HR Achieved: 166 bpm Max Heart Rate (APMHR): 154 bpm Target HR (85% APMHR): 130 bpm % of APMHR: 107 Recovery HR: 83 bpm HR response to stress: Normal HR response to stress BP Resting BP: 140/72 mmHg Max BP: 190/98 mmHg Recovery BP: 154/88 mmHg BP response to stress: Abnormal hypertensive response to stress. ECG Resting ECG: Sinus Bradycardia Stress ECG: Sinus Tachycardia ST Change: None Arrhythmia: VPC's Recovery ECG: Sinus Rhythm Recovery ST Change: None Recovery Arrhythmia: VPC Clinical Reason for Termination: Fatigue Stress Symptoms: None Exercise duration: 12 min 00 sec Exercise capacity: 12.2 METs Overall Exercise Capacity for Age: Good Stress ECG Conclusion Patient exercised for 12 minutes of a Darrick protocol, completing stage IV and achieved 13 METS. Test was stopped for fatigue, no chest pain, no ST changes and no significant dysrhythmias. Myocardial perfusion images are pending. NM EXAM: Myocardial Perfusion REST/STRESS Imaging Protocol: Rest Tc-99m/Stress Tc-99m 1 day Resting Data Rest SPECT myocardial perfusion imaging was performed in supine position 45 minutes following the intravenous injection of 28 mCi of Tc-99m Myoview. Time of rest injection: 0800 Exercise Stress At peak stress, the patient was injected intravenously with 28mCi of Tc-99m Myoview. Time of stress injection: 1132 Gated Stress SPECT was performed 30 minutes after stress injection. The images were gated to evaluate regional wall motion and calculate left ventricular ejection fraction. Study Data TID = 1.01. Perfusion Wall Motion Normal left ventricular systolic function, ejection fraction 56%. Nuclear Conclusion ECG Findings: negative for ischemia Clinical Findings: negative for ischemia Nuclear Findings: negative for ischemia Exercise Capacity: normal Left Ventricular Function: normal Risk Study: low Normal exercise myocardial perfusion study. Excellent exercise tolerance. Normal study. Conclusion Patient exercised for 12 minutes of a Darrick protocol, completing stage IV and achieved 13 METS. Test was stopped for fatigue, no chest pain, no ST changes and no significant dysrhythmias. Myocardial perfusion images are pending.
== END 2021-07-17 07:19 | disposition home or self-care (01) ==
LOC: CARD 07:18
PROVIDERS: ATTEND Internal Medicine Cardiovascular Disease
DX: E78.5 Hyperlipidemia, unspecified (principal); I10 Essential (primary) hypertension
CPT/HCPCS: 78452; 93017; A9502

== ENCOUNTER 2021-08-15 06:56 | Outpatient (CLI) | payer BC ==
--- NOTE | 2021-08-15 08:52 | Magnetic Resonance Report ---
MRI lumbar spine without contrast INDICATION: Low back pain TECHNIQUE: Axial sagittal images COMPARISON: January 2020 FINDINGS: Extensive postoperative change throughout spine. Conus appears normal. No marrow replacemen t process. L1-L2: No spinal canal narrowing or neuroforaminal narrowing. Mild facet degenerative change. L2-L3: Advanced endplate change and disc desiccation. There is a broad-based posterior disc bulge/her niation with moderate to severe bilateral lateral recess narrowing and neuroforaminal narrowing right greater than left. Mild to moderate canal narrowing is noted. L3-L4: Postoperative changes. No spinal canal narrowing or neuroforaminal narrowing. L4-L5: Postoperative changes. Small residual disc bulge without significant neuroforaminal narrowing. L5-S1: Disc desiccation with posterior disc bulge and left lateral disc herniation. There is severe l eft lateral recess narrowing and left neuroforaminal narrowing. IMPRESSION: 1. Disc desiccation with broad-based posterior disc bulge left lateral disc herniation at L5-S1. Chandrika re left lateral recess narrowing left neuroforaminal narrowing. Findings appear progressed since prio r exam. 2. Endplate changes with disc desiccation posterior disc herniation at L2-L3. Findings appear stable to slightly increased since prior examination. Please see above. 3. Postoperative change at L3-L4 and L4-L5. Signer Name: Micky Alfonso MD Signed: 08/15/2021 8:48 AM Workstation Name: [id number]
== END 2021-08-15 06:57 | disposition home or self-care (01) ==
LOC: MRI 06:56
DX: M51.17 Intervertebral disc disorders with radiculopathy, lumbosacral region (principal); M48.07 Spinal stenosis, lumbosacral region; M47.817 Spondylosis without myelopathy or radiculopathy, lumbosacral region
CPT/HCPCS: 72148

== ENCOUNTER 2022-01-03 08:49 | Day surgery (SDC) | payer BC ==
[~2022-01-03 08:49] MED LIST: SODIUM CHLORIDE 0.9% 1000 ML 1,000 ML IV SCH
[2022-01-03] MEDS ORDERED: WATER FOR IRRIG STERILE 250 ML BOTTLE IR ONE (09:17)
[2022-01-03] MEDS ORDERED: WATER FOR IRRIG STERILE 1,000 ML BOTTLE ONE (09:18)
[2022-01-03] MEDS ORDERED: propofoL 200 MG/20 ML VIAL IV ONE (12:00)
[2022-01-03] MEDS ORDERED: LIDOCAINE MPF (2%) 20 MG/1 ML VIAL 5 ML ONE (12:01)
--- NOTE | 2022-01-03 12:29 | Anesthesia Day of Surgery ---
Anesthesia Day of Surgery - Day of Surgery Patient Examined: Yes Patient H&P Reviewed: Yes Patient is NPO: Yes
--- NOTE | 2022-01-03 12:30 | Anesthesia Consultation ---
Anesthesia Consult and Med Hx Date of service: 01/03/22 - Airway Anesthetic Teeth Evaluation: Good ROM Head & Neck: Adequate Mental/Hyoid Distance: Adequate Mallampati Class: Class II Intubation Access Assessment: Good - Pulmonary Exam CTA: Yes - Cardiac Exam Cardiac Exam: RRR - Pre-Operative Health Status ASA Pre-Surgery Classification: ASA3 Proposed Anesthetic Plan: MAC (ulcerative colitis) - Pulmonary Hx Sleep Apnea: Yes (CPAP) - Cardiovascular System Hx Hypertension: Yes - Gastrointestinal Hx Gastroesophageal Reflux Disease: No - Other Systems Hx Cancer: No
--- NOTE | 2022-01-03 12:36 | Operative Report ---
Operative Report Operative Report: DOS: 01/03/22 SURGEON: Andrew Schulz MD EGD WITH ESOPHAGEAL DILATION AND BIOPSY REPORT PREOPERATIVE DIAGNOSIS and POSTOPERATIVE DIAGNOSIS: Dysphagia ESTIMATED BLOOD LOSS: Minimal DESCRIPTION OF PROCEDURE: A high-resolution EGD scope was passed through the oropharynx, esophagus, stomach, and second portion of duodenum. The scope was carefully withdrawn. Retroflexion was performed in the stomach. At the end of the procedure, the scope was cleaned using normal technique. Vital signs monitored continuously throughout. SEDATION: Provided by Anesthesiology Services. COMPLICATIONS: None. FINDINGS: * No gross lesions entire examined duodenum * Moderate gastritis of the gastric antrum and body with diffuse erythema no ulceration no blood present. Biopsies were taken to rule out H. Pylori infection. A total of 5 biopsies were taken, 2 from the antrum, 1 from the incisura, 2 from the body. 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 Cold forceps used to obtain random four- quadrant biopsies rule out Dillard's esophagus * No esophageal strictures or lesions to explain patient's dysphagia. Therefore went ahead with empiric dilatation of the esophagus using 17 mm savory dilator. First the guidewire was passed through the scope and then the scope was withdrawn the 17 mm savory dilator was passed over the guidewire with mild resistance. The guidewire and savory were then carefully withdrawn. The endoscope was reinserted. The postdilatation appearance of the esophagus was good with no perforation and no mucosal tearing. RECOMMENDATIONS: Continue omeprazole 40 mg daily Follow-up biopsy results Follow-up with primary middle school science teacher in the office in 4 to 6 weeks to ensure resolution of dysphagia symptoms with the esophageal dilation
--- NOTE | 2022-01-03 12:42 | Operative Report ---
Operative Report Operative Report: DOS: 01/03/22 SURGEON: Andrew Schulz MD COLONOSCOPY WITH BIOPSY REPORT PREOPERATIVE AND POSTOPERATIVE DIAGNOSIS: Ulcerative colitis DESCRIPTION OF PROCEDURE: The colonoscope was passed to the terminal ileum as identified by the ileal tissue. Scope was carefully withdrawn. Retroflexion was performed in the rectum. At the end of procedure, the scope was cleaned using normal technique. Vital signs monitored continuously throughout. SEDATION: Provided by Anesthesiology Services. Quality of the prep was adequate. COMPLICATIONS: None. ESTIMATED BLOOD LOSS: Minimal FINDINGS: * No ulceration seen in the terminal ileum. Mucosa normal-appearing. * No polyps. Normal appearing mucosa throughout the colon excluding the rectum. Cold forceps used to obtain biopsies and ensure deep remission of the cecum, ascending colon, and proximal transverse colon. A separate bottle was used for cold forceps biopsies of the distal transverse colon, descending colon, sigmoid colon. * Colitis of the distal 5 cm of the rectum rectum, consistent with Roger grade 2 based upon endoscopy. Cold forceps used to obtain biopsies from the rectum RECOMMENDATIONS: Follow-up biopsy results Given significant proctitis we will start patient on Canasa suppositories and he should follow-up with his primary special distribution clerk in the next 2 to 4 weeks
[2022-01-03 13:15] VITALS: BP 126/63
--- NOTE | 2022-01-03 13:21 | Post Anesthesia Evaluation ---
- Post Anesthesia Evaluation Patient Participated: Yes Airway Patent: Yes Stable Respiratory Function: Yes Nausea/Vomiting: No Temp > 96.8F: Yes Pain Manageable: Yes Adequeate Hydration: Yes Anesthesia Complications: No
== END 2022-01-03 13:30 | disposition home or self-care (01) ==
LOC: GIO 08:49
PROVIDERS: ATTEND Student in an Organized Health Care Education/Training Program
DX: K51.90 Ulcerative colitis, unspecified, without complications (principal); R13.10 Dysphagia, unspecified; K29.50 Unspecified chronic gastritis without bleeding; K21.00 Gastro-esophageal reflux disease with esophagitis, without bleeding; K63.89 Other specified diseases of intestine; K31.89 Other diseases of stomach and duodenum; H40.9 Unspecified glaucoma; E78.00 Pure hypercholesterolemia, unspecified; I10 Essential (primary) hypertension; G47.33 Obstructive sleep apnea (adult) (pediatric); M19.90 Unspecified osteoarthritis, unspecified site; Z79.899 Other long term (current) drug therapy; Z79.82 Long term (current) use of aspirin; Z87.891 Personal history of nicotine dependence; Z98.890 Other specified postprocedural states
CPT/HCPCS: 43239; 43248; 45380; 88305; 88342; C1769; J2704; J7030

== ENCOUNTER 2022-04-10 09:30 | Emergency (ER) | payer BC, MEDICARE ==
[2022-04-10] MEDS ORDERED: ASPIRIN 325 MG TAB PO ONE (10:41)
--- NOTE | 2022-04-10 11:24 | Emergency Department Report ---
HPI - General Chief Complaint: Dyspnea/Respdistress Time Seen by Provider: 04/10/22 11:13 - HPI HPI: Room 20 The patient is a 66-year-old male present with chief complaint of shortness of breath. The patient states his symptoms began approximate 2 weeks ago after receiving his COVID booster. The patient states on March 29 he noted swelling of his left lower extremity. The following week he began to develop shortness of breath the shortness of breath is only worsened this week. Patient denies cough, chest pain, pleurisy or fever but does admit to orthopnea for the past week. Patient denies history of nausea/vomiting. ED Past Medical Hx - Past Medical History Hx Hypertension: Yes Hx Arthritis: Yes Additional medical history: chronic back pain; hld - Surgical History Additional Surgical History: Back surgery, neck surgery - Family History Family history: no significant - Social History Smoking Status: Former Smoker Substance Use Type: None - Medications Home Medications: Home Medications Medication Instructions Recorded Confirmed Last Taken Type Aspirin [Adult Low Dose Aspirin EC] 81 mg PO DAILY 04/25/17 07/27/18 07/27/18 History Doxazosin Mesylate 8 mg PO BID 04/25/17 07/27/18 07/27/18 History HYDROcodone/ACETAMINOPHEN 1 tab PO BID 04/25/17 07/27/18 07/27/18 History [HYDROcodone-Acetaminophn 10-325] Metoprolol [Lopressor TAB] 50 mg PO DAILY 04/25/17 07/27/18 07/27/18 History Pravastatin Sodium 80 mg PO QHS 04/25/17 07/27/18 07/26/18 History sulfaSALAzine [Sulfasalazine] 2 tab PO BID 05/02/17 07/27/18 07/27/18 History NIFEdipine [] 90 mg PO DAILY #30 tablet 02/21/18 07/27/18 07/27/18 Rx tiZANidine [Zanaflex 4mg TAB] 4 mg PO Q8H PRN #90 tablet 11/01/20 Unknown Rx Diclofenac EC [Voltaren] 50 mg PO BID #60 each 11/22/20 Unknown Rx HYDROcodone/APAP 5-325 [[place] 1 each PO BID PRN #30 tablet 11/22/20 Unknown Rx 5/325] Albuterol Mdi (or & Nicu Only) 2 puff IH QID PRN #8.5 gram 04/10/22 Unknown Rx [ProAir HFA Inhaler] ED Review of Systems ROS: Stated complaint: SOB Other details as noted in HPI Constitutional: denies: fever Eyes: denies: eye pain ENT: denies: throat pain Respiratory: shortness of breath. denies: cough Cardiovascular: denies: chest pain Endocrine: no symptoms reported Gastrointestinal: denies: nausea, vomiting Genitourinary: denies: dysuria Musculoskeletal: denies: back pain Neurological: denies: weakness Physical Exam - Physical Exam Vital Signs: Vital Signs 04/10/22 04/10/22 10:45 11:16 Temperature 98.4 F Pulse Rate 65 70 Respiratory 20 14 Rate Blood Pressure 133/83 154/79 [Right] O2 Sat by Pulse 100 100 Oximetry Physical Exam: GENERAL: The patient is well-developed well-nourished male lying on stretcher not appearing to be in acute distress. [] HEENT: Normocephalic. Atraumatic. Extraocular motions are intact. Patient has moist mucous membranes. NECK: Supple. Trachea midline CHEST/LUNGS: Clear to auscultation. There is no respiratory distress noted. HEART/CARDIOVASCULAR: Regular. There is no tachycardia. There is no gallop rub or murmur. ABDOMEN: Abdomen is soft, nontender. Patient has normal bowel sounds. There is no abdominal distention. SKIN: There is no rash. There is trace pitting edema to the left lower extremity. There is no diaphoresis. NEURO: The patient is awake, alert, and oriented. The patient is cooperative. The patient has no focal neurologic deficits. The patient has normal speech. GCS 15 MUSCULOSKELETAL: There is no evidence of acute injury. ED Course Vital Signs 04/10/22 04/10/22 10:45 11:16 Temperature 98.4 F Pulse Rate 65 70 Respiratory 20 14 Rate Blood Pressure 133/83 154/79 [Right] O2 Sat by Pulse 100 100 Oximetry ED Medical Decision Making - Lab Data Result diagrams: 04/10/22 10:41 04/10/22 10:41 Laboratory Tests 04/10/22 04/10/22 04/10/22 10:41 10:41 10:43 WBC 6.2 RBC 4.23 Hgb 13.3 Hct 40.3 MCV 95 H MCH 31 MCHC 33 RDW 14.8 Plt Count 152 Lymph % (Auto) 29.3 [place] % (Auto) 13.3 H Eos % (Auto) 0.0 Baso % (Auto) 0.3 Lymph # (Auto) 1.8 [place] # (Auto) 0.8 Eos # (Auto) 0.0 Baso # (Auto) 0.0 Seg Neutrophils % 57.1 Seg Neutrophils # 3.5 Sodium 141 Potassium 3.5 L Chloride 105.6 Carbon Dioxide 25 Anion Gap 14 BUN 9 Creatinine 0.9 Estimated GFR > 60 BUN/Creatinine Ratio 10 Glucose 112 H Calcium 9.4 Total Creatine Kinase Troponin T < 0.010 NT-Pro-B Natriuret Pep 36.45 04/10/22 04/10/22 11:41 15:34 WBC RBC Hgb Hct MCV MCH MCHC RDW Plt Count Lymph % (Auto) [place] % (Auto) Eos % (Auto) Baso % (Auto) Lymph # (Auto) [place] # (Auto) Eos # (Auto) Baso # (Auto) Seg Neutrophils % Seg Neutrophils # Sodium Potassium Chloride Carbon Dioxide Anion Gap BUN Creatinine Estimated GFR BUN/Creatinine Ratio Glucose Calcium Total Creatine Kinase 94 Troponin T < 0.010 NT-Pro-B Natriuret Pep - EKG Data -: EKG Interpreted by Me EKG shows normal: sinus rhythm Rate: normal - EKG Data When compared to previous EKG there are: previous EKG unavailable Interpretation: nonspecific ST-T wave kimberly (Flattened T waves laterally) - Radiology Data Radiology results: report reviewed (Chest x-ray, CTA chest, left lower extremity Doppler), image reviewed (Chest x-ray, CTA chest, left lower extremity Doppler) interpreted by me: Chest x-ray-no definite focal infiltrates, no pneumothorax [facility] [address] [place] [address] XRay Report Signed Patient: PATRICIA YOUNG MR#: [id number] : 1955 Acct:[id number] Age/Sex: 66 / M ADM Date: 04/10/22 Loc: ED Attending Dr: Ordering Physician: ROSE WOO NP Date of Service: 04/10/22 Procedure(s): XR chest routine 2V Accession Number(s): [id number] cc: ROSE WOO NP Fluoro Time In Minutes: CHEST PA AND LATERAL VIEWS INDICATION: Shortness of breath. COMPARISON: 11/11/2019 FINDINGS: Support devices: None. Heart: Within normal limits. Lungs/Pleura: No acute pulmonary or pleural findings. IMPRESSION: 1. No acute findings. Signer Name: Lv Pimentel MD Signed: 04/10/2022 11:18 AM Workstation Name: [id number] Transcribed By: JAMES Dictated By: Lv Pimentel MD Electronically Authenticated By: Lv Pimentel MD Signed Date/Time: 04/10/221117 DD/ 17 TD/TT: [facility] [address] [place] [address] Cat Scan Report Signed Patient: PATRICIA YOUNG MR#: [id number] : 1955 Acct:[id number] Age/Sex: 66 / M ADM Date: 04/10/22 Loc: ED Attending Dr: Ordering Physician: KARON RIVERA MD Date of Service: 04/10/22 Procedure(s): CT angio chest Accession Number(s): [id number] cc: KARON RIVERA MD CTA CHEST WITH CONTRAST INDICATION / CLINICAL INFORMATION: Shortness of breath. TECHNIQUE: Axial CT images were obtained through the chest after injection of 100 cc Omnipaque 350 IV contrast. 3 plane MIP and/or 3D reconstructions were produced. All CT scans at this location are performed using CT dose reduction for ALARA by means of automated exposure control. COMPARISON: 2 views of the chest from 04/10/2022. CTA chest from 11/11/2019. FINDINGS: PULMONARY EMBOLUS: None. THORACIC AORTA: No significant abnormality. HEART: No significant abnormality. CORONARY ARTERY CALCIFICATION: Present -- Mild. MEDIASTINUM / TANIA: No significant abnormality. PLEURA: No pleural effusion. No pneumothorax. LUNGS: No acute air space or interstitial disease. ADDITIONAL FINDINGS: None. UPPER ABDOMEN: No acute findings. There are similar postoperative changes along the stomach. SKELETAL STRUCTURES: No significant osseous abnormality. IMPRESSION: 1. No CT evidence for pulmonary embolism. 2. No acute findings. Signer Name: Yousif Sultana MD Signed: 04/10/2022 12:32 PM Workstation Name: [id number] Transcribed By: DENICE Dictated By: Yousif Sultana MD Electronically Authenticated By: Yousif Sultana MD Signed Date/Time: 04/10/22 1232 DD/ 1226 TD/TT: [facility] [address] [place] [address] Vascular Lab Report Signed Patient: PATRICIA YOUNG MR#: [id number] : 1955 Acct:[id number] Age/Sex: 66 / M ADM Date: 04/10/22 Loc: ED Attending Dr: Ordering Physician: KARON RIVERA MD Date of Service: 04/10/22 Procedure(s): VL venous duplex LE LT Accession Number(s): [id number] cc: KARON RIVERA MD DUPLEX DOPPLER LOWER EXTREMITY VEINS, LEFT INDICATION / CLINICAL INFORMATION: Pain and swelling. TECHNIQUE: Duplex doppler imaging was performed through the veins of the left lower extremity using venous compression and other maneuvers. COMPARISON: None available. FINDINGS: LEFT COMMON FEMORAL VEIN: Negative. LEFT FEMORAL VEIN: Negative. LEFT POPLITEAL VEIN: Negative. LEFT CALF VEINS: Negative. ADDITIONAL FINDINGS: None. IMPRESSION: 1. No sonographic evidence for DVT in the left lower extremity. Signer Name: Bryan Barnhart MD Signed: 04/10/2022 2:04 PM Workstation Name: [id number] Transcribed By: KRISTI Dictated By: Bryan Barnhart MD Electronically Authenticated By: Bryan Barnhart MD Signed Date/Time: 04/10/22 1404 DD/ 1404 TD/TT: - Differential Diagnosis PE, CHF, Critical care attestation.: If time is entered above; I have spent that time in minutes in the direct care of this critically ill patient, excluding procedure time. ED Disposition Clinical Impression: Shortness of breath Disposition: 01 HOME / SELF CARE / HOMELESS Is pt being admited?: No Does the pt Need Aspirin: No Condition: Stable Instructions: Shortness of Breath, Adult, [id number] Additional Instructions: Return to the emergency department should you develop worsening symptoms, in ability to tolerate food or liquids, high fever or any other concerns Prescriptions: Albuterol Mdi (or & Nicu Only) [ProAir HFA Inhaler] 2 puff IH QID PRN #8.5 gram PRN Reason: Shortness Of Breath Referrals: PRIMARY CARE, [Primary Care Provider] - 3-5 Days Time of Disposition: 16:31
[2022-04-10 11:45] LABS: Basophils % (Auto) 0.3 % (0.0-1.8); Hematocrit 40.3 % (35.5-45.6); Hemoglobin 13.3 gm/dl (11.8-15.2); Lymphocytes # (Auto) 1.8 K/mm3 (1.2-5.4); Lymphocytes % (Auto) 29.3 % (13.4-35.0); Mean Corpuscular HGB Conc 33 % (32-34); Mean Corpuscular Volume 95 fl (84-94); Monocytes # (Auto) 0.8 K/mm3 (0.0-0.8); Monocytes % (Auto) 13.3 % (0.0-7.3); Platelet Count 152 K/mm3 (140-440); Red Blood Count 4.23 M/mm3 (3.65-5.03); Red Cell Distribution Width 14.8 % (13.2-15.2)
[2022-04-10 11:57] LABS: BUN/Creatinine Ratio 10; Blood Urea Nitrogen 9 mg/dL (9-20); Calcium 9.4 mg/dL (8.4-10.2); Hemolysis Index 5
[2022-04-10 12:16] VITALS: BP 130/76
[2022-04-10] MEDS ORDERED: POTASSIUM CHLORIDE ER 20 MEQ TAB PO ONE (12:18)
--- NOTE | 2022-04-10 12:36 | Cat Scan Report ---
CTA CHEST WITH CONTRAST INDICATION / CLINICAL INFORMATION: Shortness of breath. TECHNIQUE: Axial CT images were obtained through the chest after injection of 100 cc Omnipaque 350 IV contrast. 3 plane MIP and/or 3D reconstructions were produced. All CT scans at this location are per formed using CT dose reduction for ALARA by means of automated exposure control. COMPARISON: 2 views of the chest from 04/10/2022. CTA chest from 11/11/2019. FINDINGS: PULMONARY EMBOLUS: None. THORACIC AORTA: No significant abnormality. HEART: No significant abnormality. CORONARY ARTERY CALCIFICATION: Present -- Mild. MEDIASTINUM / TANIA: No significant abnormality. PLEURA: No pleural effusion. No pneumothorax. LUNGS: No acute air space or interstitial disease. ADDITIONAL FINDINGS: None. UPPER ABDOMEN: No acute findings. There are similar postoperative changes along the stomach. SKELETAL STRUCTURES: No significant osseous abnormality. IMPRESSION: 1. No CT evidence for pulmonary embolism. 2. No acute findings. Signer Name: Yousif Sultana MD Signed: 04/10/2022 12:32 PM Workstation Name: [id number]
--- NOTE | 2022-04-10 13:23 | Electrocardiograph Report ---
[facility] Test Date: 2022-04-10 Test Time: 11:15:36 Pat Name: PATRICIA YOUNG Department: Room: Gender: M [employer] Operator: TV : 1955 Requested By: ROSE WOO Order Number: [id number] Reading MD: Hermelindo Zamora Measurements Intervals [place] Rate: 59 P: 42 SC: 192 QRS: 8 QRSD: 91 T: QT: 408 QTc: 404 Interpretive Statements Sinus bradycardia Nonspecific T abnormalities, diffuse leads No previous ECG available for comparison Electronically Signed On 04-10-2022 13:22:55 EDT by Hermelindo Zamora
--- NOTE | 2022-04-10 14:09 | Vascular Lab Report ---
DUPLEX DOPPLER LOWER EXTREMITY VEINS, LEFT INDICATION / CLINICAL INFORMATION: Pain and swelling. TECHNIQUE: Duplex doppler imaging was performed through the veins of the left lower extremity using venous compr ession and other maneuvers. COMPARISON: None available. FINDINGS: LEFT COMMON FEMORAL VEIN: Negative. LEFT FEMORAL VEIN: Negative. LEFT POPLITEAL VEIN: Negative. LEFT CALF VEINS: Negative. ADDITIONAL FINDINGS: None. IMPRESSION: 1. No sonographic evidence for DVT in the left lower extremity. Signer Name: Bryan Barnhart MD Signed: 04/10/2022 2:04 PM Workstation Name: [email or web address]
== END 2022-04-10 16:40 | disposition home or self-care (01) ==
LOC: ED 09:30
DX: R06.02 Shortness of breath (principal); I10 Essential (primary) hypertension; M19.90 Unspecified osteoarthritis, unspecified site
CPT/HCPCS: 36415; 71046; 71275; 80048; 82550; 83880; 84484; 85025; 93005; 93971; 99284; Q9967